=== PATIENT | male | born 1955 | race Caucasian/White ===

== ENCOUNTER 2017-05-17 09:24 | Inpatient (IN) | payer MEDICARE ==
[~2017-05-17] VITALS: Ht 172.7 cm; Wt 65.9 kg
[~2017-05-17 09:24] MED LIST: HYDR-3240 PO; MAGN400T26 PO; METF10002 PO; METF500T4 PO; ONDA4TAB7 PO; OXYC-302 PO; PANT40TA3 PO; POLY17PO5 PO; PROM25SU34 RC; TAMS-11 PO
[2017-05-17] MEDS ORDERED: DEXTROSE 50%, 50ML VIAL ONE (09:48)
[2017-05-17] MEDS ORDERED: SODIUM CHLORIDE 0.9% 1,000 ML IV ONE (10:05)
[2017-05-17] MEDS ORDERED: FAMOTIDINE 20 MG/2 ML ONE (10:14)
[2017-05-17] MEDS ORDERED: ONDANSETRON 2MG/ML, 2ML ONE (10:14)
[2017-05-17] MEDS ORDERED: FAMOTIDINE 20 MG/2 ML IVP ONE (10:30)
[2017-05-17] MEDS ORDERED: SODIUM CHLORIDE 0.9% 1,000ML IVBOLUS ONE (10:30)
[2017-05-17] MEDS ORDERED: ONDANSETRON 2MG/ML, 2ML IVPush ONE (10:30)
[2017-05-17] MEDS ORDERED: MAALOX/HYOSCYAMINE/LIDOCAINE 45 ML BOTTLE PO ONE (10:30)
[2017-05-17] MEDS ORDERED: PROMETHAZINE 25 MG/ML, 1ML ONE (10:32)
[2017-05-17] MEDS ORDERED: PROMETHAZINE 25 MG/ML, 1ML IM ONE (11:00)
[2017-05-17 11:05] LABS: ASPARTATE AMINO TRANSFERASE 27 U/L (15-37); BLOOD UREA NITROGEN 38 mg/dL (7-18)
[2017-05-17] MEDS ORDERED: MAALOX/HYOSCYAMINE/LIDOCAINE 45 ML BOTTLE ONE (11:05)
[2017-05-17] MEDS ORDERED: CIPROFLOXACIN/PMX 400MG/200ML 200 ML IV ONE (12:00)
[2017-05-17] MEDS ORDERED: METRONIDAZOLE PMX 500MG/100ML 100 ML IV ONE (12:00)
[2017-05-17 12:24] LABS: PATH.CAST-FLAG NOT PRESENT; SPERM-FLAG NOT PRESENT; SRC-FLAG NOT PRESENT; XTAL-FLAG NOT PRESENT; YLC-FLAG NOT PRESENT
[2017-05-17] MEDS ORDERED: METRONIDAZOLE PMX 500MG/100ML 100 ML ONE (12:41)
[2017-05-17] MEDS ORDERED: CIPROFLOXACIN/PMX 400MG/200ML 200 ML ONE (13:39)
[2017-05-17 15:15] VITALS: BP 117/69
[2017-05-17] MEDS ORDERED: PANTOPRAZOLE 80 MG in SODIUM CHLORIDE 0.9% 50 ML IV ONE (17:30)
[2017-05-17] MEDS ORDERED: GLUCAGON 1 MG IM PRN (17:30)
[2017-05-17] MEDS ORDERED: DEXTROSE 50%, 50ML SYRINGE IVPush PRN (17:30)
[2017-05-17] MEDS ORDERED: LABETALOL 5MG/ML, 20ML IVPush PRN (17:30)
[2017-05-17] MEDS ORDERED: DEXTROSE 4 GM TAB.CHEW PO PRN (17:30)
[2017-05-17] MEDS ORDERED: ENALAPRILAT 1.25 MG/ML, 2ML IVPush PRN (17:30)
[2017-05-17] MEDS ORDERED: INSULIN DETEMIR 100 UNITS/ML, PEN SQ-INSULIN SCH (18:00)
[2017-05-17] MEDS: morphine SULFATE 10 MG/ML, 1ML IVPush PRN ×2 (18:23→21:46)
[2017-05-17] MEDS: PANTOPRAZOLE 80 MG in SODIUM CHLORIDE 0.9% 100 ML IV SCH (18:23)
[2017-05-17] MEDS: ONDANSETRON 2MG/ML, 2ML IVPush PRN (18:23)
[2017-05-17] MEDS: CEFTRIAXONE PMX 1GM/50ML 50 ML IV SCH (18:42)
[2017-05-17] MEDS: D5%-0.45NACL+KCL 20MEQ 1,000 ML IV SCH (18:42)
[2017-05-17 20:39] VITALS: BP 108/66
[2017-05-17] MEDS: INSULIN ASPART 100 UNITS/ML, PEN SQ-INSULIN SCH (21:00)
[2017-05-17] MEDS: METRONIDAZOLE PMX 500MG/100ML 100 ML IV SCH (21:45)
[2017-05-17] MEDS: SODIUM CHLORIDE FLUSH 10ML SYR IVF SCH (21:45)
[2017-05-17] MEDS: METOCLOPRAMIDE 5 MG/ML, 2ML IVPush PRN (21:46)
[2017-05-18] MEDS: morphine SULFATE 10 MG/ML, 1ML IVPush PRN ×4 (01:16→21:46)
[2017-05-18] MEDS: ONDANSETRON 2MG/ML, 2ML IVPush PRN ×3 (01:16→21:21)
[2017-05-18 02:00] VITALS: BP 124/74
[2017-05-18] MEDS: D5%-0.45NACL+KCL 20MEQ 1,000 ML IV SCH (04:52)
[2017-05-18] MEDS: PANTOPRAZOLE 80 MG in SODIUM CHLORIDE 0.9% 100 ML IV SCH ×2 (04:52→14:05)
[2017-05-18] MEDS: METOCLOPRAMIDE 5 MG/ML, 2ML IVPush PRN ×2 (04:57→23:57)
[2017-05-18] MEDS: METRONIDAZOLE PMX 500MG/100ML 100 ML IV SCH ×3 (05:04→21:20)
[2017-05-18 06:12] LABS: ASPARTATE AMINO TRANSFERASE 22 U/L (15-37); BLOOD UREA NITROGEN 24 mg/dL (7-18)
[2017-05-18 07:26] VITALS: BP 148/83
[2017-05-18] MEDS: INSULIN ASPART 100 UNITS/ML, PEN SQ-INSULIN SCH ×4 (08:20→21:00)
[2017-05-18] MEDS: SODIUM CHLORIDE FLUSH 10ML SYR IVF SCH ×2 (09:29→21:00)
[2017-05-18] MEDS ORDERED: FENTANYL PF 100 MCG/2ML ONE (10:06)
[2017-05-18] MEDS ORDERED: PROPOFOL 10 MG/ML, 50ML ONE (10:07)
[2017-05-18] MEDS ORDERED: PROPOFOL 10 MG/ML, 20ML ONE (10:07)
[2017-05-18 12:57] VITALS: BP 112/72
[2017-05-18] MEDS: CEFTRIAXONE PMX 1GM/50ML 50 ML IV SCH (18:14)
[2017-05-18 21:32] VITALS: BP 128/74
[2017-05-19 02:22] VITALS: BP 128/71
[2017-05-19] MEDS: D5%-0.45NACL+KCL 20MEQ 1,000 ML IV SCH (02:59)
[2017-05-19] MEDS: ONDANSETRON 2MG/ML, 2ML IVPush PRN ×3 (03:03→18:21)
[2017-05-19] MEDS: METRONIDAZOLE PMX 500MG/100ML 100 ML IV SCH ×3 (05:13→21:12)
[2017-05-19 06:40] VITALS: BP 114/66
[2017-05-19] MEDS: INSULIN ASPART 100 UNITS/ML, PEN SQ-INSULIN SCH ×4 (07:00→21:13)
[2017-05-19] MEDS: METOCLOPRAMIDE 5 MG/ML, 2ML IVPush PRN ×2 (09:01→15:29)
[2017-05-19] MEDS: morphine SULFATE 10 MG/ML, 1ML IVPush PRN ×2 (09:01→12:24)
[2017-05-19] MEDS: SODIUM CHLORIDE FLUSH 10ML SYR IVF SCH ×2 (09:02→21:12)
[2017-05-19 09:29] LABS: ASPARTATE AMINO TRANSFERASE 19 U/L (15-37); BLOOD UREA NITROGEN 19 mg/dL (7-18)
[2017-05-19 12:10] VITALS: BP 122/70
[2017-05-19] MEDS ORDERED: OMNIPAQUE 350 MG/ML, 150 ML BOTTLE ONE (13:21)
[2017-05-19] MEDS: KETOROLAC 30 MG/1 ML IVPush PRN (15:29)
[2017-05-19] MEDS: CEFTRIAXONE PMX 1GM/50ML 50 ML IV SCH (17:19)
[2017-05-19] MEDS: MORPHINE SULFATE 4 MG/ML, 1ML IVPush PRN ×2 (18:22→21:12)
[2017-05-19 19:53] VITALS: BP 123/74
[2017-05-19] MEDS: PROMETHAZINE 25 MG/ML, 1ML IM PRN (21:12)
[2017-05-20] MEDS: D5%-0.45NACL+KCL 20MEQ 1,000 ML IV SCH ×2 (00:11→21:41)
[2017-05-20] MEDS: KETOROLAC 30 MG/1 ML IVPush PRN (00:12)
[2017-05-20] MEDS: METOCLOPRAMIDE 5 MG/ML, 2ML IVPush PRN ×2 (00:12→08:20)
[2017-05-20] MEDS: PROMETHAZINE 25 MG/ML, 1ML IM PRN ×2 (00:21→05:36)
[2017-05-20 00:24] VITALS: BP 156/85
[2017-05-20] MEDS: MORPHINE SULFATE 4 MG/ML, 1ML IVPush PRN ×4 (00:28→13:20)
[2017-05-20] MEDS: ONDANSETRON 2MG/ML, 2ML IVPush PRN ×2 (05:34→13:20)
[2017-05-20] MEDS: METRONIDAZOLE PMX 500MG/100ML 100 ML IV SCH ×3 (05:34→20:57)
[2017-05-20 06:09] LABS: ASPARTATE AMINO TRANSFERASE 21 U/L (15-37); BLOOD UREA NITROGEN 21 mg/dL (7-18)
[2017-05-20 06:43] VITALS: BP 132/77
[2017-05-20] MEDS: INSULIN ASPART 100 UNITS/ML, PEN SQ-INSULIN SCH ×4 (07:00→20:57)
[2017-05-20] MEDS: SODIUM CHLORIDE FLUSH 10ML SYR IVF SCH ×2 (08:20→20:58)
[2017-05-20 13:30] VITALS: BP 155/90
[2017-05-20] MEDS: CEFTRIAXONE PMX 1GM/50ML 50 ML IV SCH (17:11)
[2017-05-20 18:29] VITALS: BP 121/68
[2017-05-20] MEDS ORDERED: DIPHENHYDRAMINE 25 MG CAPSULE PO ONE (20:00)
[2017-05-20] MEDS ORDERED: TEMAZEPAM 15 MG CAPSULE PO ONE (21:15)
[2017-05-21 01:32] VITALS: BP 140/79
[2017-05-21] MEDS: ONDANSETRON 2MG/ML, 2ML IVPush PRN ×3 (05:24→20:26)
[2017-05-21] MEDS: METRONIDAZOLE PMX 500MG/100ML 100 ML IV SCH ×3 (05:25→20:24)
[2017-05-21] MEDS: METOCLOPRAMIDE 5 MG/ML, 2ML IVPush PRN (06:43)
[2017-05-21] MEDS: PROMETHAZINE 25 MG/ML, 1ML IM PRN ×3 (06:43→17:04)
[2017-05-21] MEDS: INSULIN ASPART 100 UNITS/ML, PEN SQ-INSULIN SCH ×4 (07:00→20:25)
[2017-05-21 07:46] VITALS: BP 148/77
[2017-05-21] MEDS: SODIUM CHLORIDE FLUSH 10ML SYR IVF SCH ×2 (09:13→20:24)
[2017-05-21] MEDS ORDERED: MAALOX/HYOSCYAMINE/LIDOCAINE 45 ML BOTTLE PO ONE (12:00)
[2017-05-21] MEDS: OMEPRAZOLE 20 MG CAPSULE.DR PO SCH (13:00)
[2017-05-21] MEDS: SUCRALFATE 1 GM/10 ML UDC PO SCH ×3 (13:00→20:25)
[2017-05-21 13:49] VITALS: BP 136/85
[2017-05-21] MEDS: CEFTRIAXONE PMX 1GM/50ML 50 ML IV SCH (17:23)
[2017-05-21 19:34] VITALS: BP 149/85
[2017-05-21] MEDS: D5%-0.45NACL+KCL 20MEQ 1,000 ML IV SCH (20:24)
[2017-05-22] MEDS: PROMETHAZINE 25 MG/ML, 1ML IM PRN (00:14)
[2017-05-22 03:03] VITALS: BP 142/76
[2017-05-22] MEDS: METRONIDAZOLE PMX 500MG/100ML 100 ML IV SCH ×3 (05:48→21:06)
[2017-05-22 06:48] VITALS: BP 158/87
[2017-05-22] MEDS: SUCRALFATE 1 GM/10 ML UDC PO SCH ×4 (08:45→21:06)
[2017-05-22] MEDS: SODIUM CHLORIDE FLUSH 10ML SYR IVF SCH ×2 (08:45→21:06)
[2017-05-22] MEDS: OMEPRAZOLE 20 MG CAPSULE.DR PO SCH (08:45)
[2017-05-22] MEDS: INSULIN ASPART 100 UNITS/ML, PEN SQ-INSULIN SCH ×4 (08:45→21:38)
[2017-05-22] MEDS: ONDANSETRON 2MG/ML, 2ML IVPush PRN (11:51)
[2017-05-22 13:02] VITALS: BP 125/81
[2017-05-22] MEDS ORDERED: GLUCAGON 1 MG IM PRN ×2 (14:00)
[2017-05-22] MEDS ORDERED: DEXTROSE 4 GM TAB.CHEW PO PRN ×2 (14:00)
[2017-05-22] MEDS ORDERED: ONDANSETRON 2MG/ML, 2ML IVPush PRN (14:00)
[2017-05-22] MEDS ORDERED: DEXTROSE 50%, 50ML SYRINGE IVPush PRN ×2 (14:00)
[2017-05-22] MEDS ORDERED: PROMETHAZINE 25 MG/ML, 1ML IM PRN (14:00)
[2017-05-22] MEDS ORDERED: LABETALOL 5MG/ML, 20ML IVPush PRN ×2 (14:00)
[2017-05-22] MEDS: CEFTRIAXONE PMX 1GM/50ML 50 ML IV SCH (18:04)
[2017-05-22 18:52] VITALS: BP 139/72
[2017-05-22] MEDS ORDERED: SODIUM CHLORIDE FLUSH 10ML SYR IVF SCH (21:00)
[2017-05-22] MEDS: D5%-0.45NACL+KCL 20MEQ 1,000 ML IV SCH (21:05)
[2017-05-23 02:01] VITALS: BP 144/85
[2017-05-23] MEDS: KETOROLAC 30 MG/1 ML IVPush PRN (02:44)
[2017-05-23] MEDS: METRONIDAZOLE PMX 500MG/100ML 100 ML IV SCH (04:32)
[2017-05-23] MEDS: METOCLOPRAMIDE 5 MG/ML, 2ML IVPush PRN (04:33)
[2017-05-23 07:00] VITALS: BP 137/71
[2017-05-23] MEDS: SUCRALFATE 1 GM/10 ML UDC PO SCH ×4 (07:00→21:10)
[2017-05-23] MEDS: INSULIN ASPART 100 UNITS/ML, PEN SQ-INSULIN SCH ×3 (08:04→16:00)
[2017-05-23] MEDS: SODIUM CHLORIDE FLUSH 10ML SYR IVF SCH ×2 (08:05→21:10)
[2017-05-23] MEDS: OMEPRAZOLE 20 MG CAPSULE.DR PO SCH (08:05)
[2017-05-23 08:23] LABS: BLOOD UREA NITROGEN 16 mg/dL (7-18)
[2017-05-23 08:26] LABS: ASPARTATE AMINO TRANSFERASE 22 U/L (15-37)
[2017-05-23 09:26] LABS: IS PT STATUS REG ER OR PRE ER? NO
[2017-05-23 09:46] LABS: HIV 1&2 ANTIBODY SCREEN Nonreactive (Nonreactive); HIV-1 p24 ANTIGEN Nonreactive (Nonreactive)
[2017-05-23] MEDS: NS + 20MEQ KCL 1,000 ML IV SCH (10:07)
[2017-05-23 13:58] VITALS: BP 111/72
[2017-05-23] MEDS ORDERED: DEXTROSE 50%, 50ML SYRINGE IVPush ONE (16:30)
[2017-05-23 19:07] VITALS: BP 107/68
[2017-05-23] MEDS ORDERED: GLUCAGON 1 MG IM PRN (22:00)
[2017-05-23] MEDS ORDERED: DEXTROSE 4 GM TAB.CHEW PO PRN (22:00)
[2017-05-23] MEDS ORDERED: PROMETHAZINE 25 MG/ML, 1ML IM PRN (22:00)
[2017-05-23] MEDS ORDERED: DEXTROSE 50%, 50ML SYRINGE IVPush PRN (22:00)
[2017-05-23] MEDS ORDERED: LABETALOL 5MG/ML, 20ML IVPush PRN (22:00)
[2017-05-24] MEDS: NS + 20MEQ KCL 1,000 ML IV SCH ×2 (00:38→13:56)
[2017-05-24] MEDS: INSULIN ASPART 100 UNITS/ML, PEN SQ-INSULIN SCH ×6 (04:00→20:00)
[2017-05-24] MEDS: METOCLOPRAMIDE 5 MG/ML, 2ML IVPush PRN ×2 (04:33→21:14)
[2017-05-24 05:01] VITALS: BP 149/87
[2017-05-24 05:09] LABS: BLOOD UREA NITROGEN 18 mg/dL (7-18)
[2017-05-24 05:15] LABS: ASPARTATE AMINO TRANSFERASE 24 U/L (15-37)
[2017-05-24 07:17] VITALS: BP 149/79
[2017-05-24] MEDS: SUCRALFATE 1 GM/10 ML UDC PO SCH ×4 (07:59→21:14)
[2017-05-24] MEDS: OMEPRAZOLE 20 MG CAPSULE.DR PO SCH (07:59)
[2017-05-24] MEDS: SODIUM CHLORIDE FLUSH 10ML SYR IVF SCH ×2 (08:03→21:15)
[2017-05-24 12:35] VITALS: BP 136/79
[2017-05-24 18:46] VITALS: BP 142/73
[2017-05-24] MEDS ORDERED: LURASIDONE 20 MG TABLET PO SCH (21:00)
[2017-05-24] MEDS ORDERED: KETOROLAC 30 MG/1 ML IV ONE (21:00)
[2017-05-25 00:22] VITALS: BP 158/78
[2017-05-25] MEDS: NS + 20MEQ KCL 1,000 ML IV SCH ×2 (03:56→17:10)
[2017-05-25] MEDS: INSULIN ASPART 100 UNITS/ML, PEN SQ-INSULIN SCH ×7 (03:56→23:57)
[2017-05-25 06:00] LABS: BLOOD UREA NITROGEN 14 mg/dL (7-18)
[2017-05-25 06:14] LABS: ASPARTATE AMINO TRANSFERASE 23 U/L (15-37)
[2017-05-25] MEDS: SODIUM CHLORIDE FLUSH 10ML SYR IVF SCH ×2 (08:00→23:43)
[2017-05-25] MEDS: OMEPRAZOLE 20 MG CAPSULE.DR PO SCH (08:04)
[2017-05-25] MEDS: SUCRALFATE 1 GM/10 ML UDC PO SCH ×4 (08:04→23:43)
[2017-05-25 10:16] VITALS: BP 117/77
[2017-05-25 12:52] VITALS: BP 119/86
[2017-05-25] MEDS ORDERED: LURASIDONE 20 MG TABLET PO SCH ×2 (16:30→21:00)
[2017-05-25] MEDS: HEPARIN 5,000 UNITS/ML, 1ML SQ SCH (17:00)
[2017-05-25 20:21] VITALS: BP 132/82
[2017-05-26 02:31] VITALS: BP 160/84
[2017-05-26] MEDS: INSULIN ASPART 100 UNITS/ML, PEN SQ-INSULIN SCH ×4 (04:00→16:21)
[2017-05-26] MEDS: METOCLOPRAMIDE 5 MG/ML, 2ML IVPush PRN (04:28)
[2017-05-26] MEDS: HEPARIN 5,000 UNITS/ML, 1ML SQ SCH ×2 (04:42→16:22)
[2017-05-26 05:37] LABS: ASPARTATE AMINO TRANSFERASE 14 U/L (15-37); BLOOD UREA NITROGEN 15 mg/dL (7-18)
[2017-05-26 07:16] VITALS: BP 148/82
[2017-05-26] MEDS: SUCRALFATE 1 GM/10 ML UDC PO SCH ×3 (08:24→16:21)
[2017-05-26] MEDS: OMEPRAZOLE 20 MG CAPSULE.DR PO SCH (08:24)
[2017-05-26] MEDS: SODIUM CHLORIDE FLUSH 10ML SYR IVF SCH (08:25)
[2017-05-26] MEDS: NS + 20MEQ KCL 1,000 ML IV SCH (08:25)
[2017-05-26] MEDS ORDERED: SUCR1ORA2 PO (08:40)
[2017-05-26] MEDS ORDERED: OMEP-110 PO (08:40)
[2017-05-26] MEDS ORDERED: ENAL2.5T PO (08:40)
[2017-05-26] MEDS ORDERED: ENALAPRIL 2.5MG TABLET PO SCH (09:00)
[2017-05-26 13:30] VITALS: BP 146/87
[2017-05-26] MEDS ORDERED: LURASIDONE 20 MG TABLET PO SCH (16:30)
== END 2017-05-26 19:42 | disposition home or self-care (01) | DRG 380 ==
LOC: ED 11:07 → EDIP 13:30 → 4EST 15:36 → 3NE 05-22 08:57
PROVIDERS: ADMIT Internal Medicine; ATTEND Family Medicine
PROC: 0DB68ZX Excision of Stomach, Via Natural or Artificial Opening Endoscopic, Diagnostic (ICD-10-PCS; 2017-05-18)
PROC: 0DB98ZX Excision of Duodenum, Via Natural or Artificial Opening Endoscopic, Diagnostic (ICD-10-PCS; principal; 2017-05-18 10:00)
DX: K22.11 Ulcer of esophagus with bleeding (principal); A41.9 Sepsis, unspecified organism; N17.0 Acute kidney failure with tubular necrosis; E87.0 Hyperosmolality and hypernatremia; E87.2 Acidosis; N20.2 Calculus of kidney with calculus of ureter; F31.32 Bipolar disorder, current episode depressed, moderate; K22.6 Gastro-esophageal laceration-hemorrhage syndrome; E11.65 Type 2 diabetes mellitus with hyperglycemia; E86.0 Dehydration; F12.90 Cannabis use, unspecified, uncomplicated; F41.9 Anxiety disorder, unspecified; K57.30 Diverticulosis of large intestine without perforation or abscess without bleeding; K29.80 Duodenitis without bleeding; T40.7X5A Adverse effect of cannabis (derivatives), initial encounter; Z82.0 Family history of epilepsy and other diseases of the nervous system; Z87.442 Personal history of urinary calculi; Z91.19 Patient's noncompliance with other medical treatment and regimen; Z88.6 Allergy status to analgesic agent; Z88.1 Allergy status to other antibiotic agents; Z88.8 Allergy status to other drugs, medicaments and biological substances; Z81.1 Family history of alcohol abuse and dependence; Z81.8 Family history of other mental and behavioral disorders; E11.649 Type 2 diabetes mellitus with hypoglycemia without coma
CPT/HCPCS: 36415; 71010; 74176; 74178; 80053; 81001; 82010; 82800; 82962; 83605; 83690; 83735; 83880; 84100; 84145; 84443; 84484; 85014; 85018; 85025; 85610; 86703; 86850; 86900; 86923; 87040; 87324; 87899; 88305; 89055; 93005; 93306; 96361; 96365; 96372; 96375; 99292; J0696; J0744; J1815; J1885; J2405; J2550; J2704; J3010; J3480; Q9967; C9113; G0435; J2270; J2765; J7030; S0028

== ENCOUNTER 2017-05-28 18:34 | Emergency (ER) | payer MEDICARE ==
[~2017-05-28] VITALS: Ht 167.6 cm; Wt 65.0 kg
[~2017-05-28 18:34] MED LIST changes: +ENAL2.5T PO; +OMEP-110 PO; +SUCR1ORA2 PO
[2017-05-28] MEDS ORDERED: ONDANSETRON 2MG/ML, 2ML ONE (19:22)
[2017-05-28] MEDS ORDERED: FAMOTIDINE 20 MG/2 ML ONE (19:22)
[2017-05-28] MEDS ORDERED: MAALOX/HYOSCYAMINE/LIDOCAINE 45 ML BTL ONE (19:22)
[2017-05-28] MEDS ORDERED: HALOPERIDOL 5 MG/ML IV ONE (19:30)
[2017-05-28] MEDS ORDERED: SODIUM CHLORIDE 0.9% 1,000ML IVBOLUS ONE (19:30)
[2017-05-28] MEDS ORDERED: FAMOTIDINE 20 MG/2 ML IVP ONE (19:30)
[2017-05-28] MEDS ORDERED: SODIUM CHLORIDE FLUSH 10ML SYR IVF ONE (19:30)
[2017-05-28] MEDS ORDERED: ONDANSETRON 2MG/ML, 2ML IVPush ONE (19:30)
[2017-05-28] MEDS ORDERED: MAALOX/HYOSCYAMINE/LIDOCAINE 45 ML BTL PO ONE (19:30)
[2017-05-28 19:34] VITALS: BP 124/75
[2017-05-28 19:43] LABS: PH, VENOUS 7.327 pH (7.320-7.420)
[2017-05-28 19:49] LABS: FIO2 RM AIR %
[2017-05-28 20:03] LABS: ASPARTATE AMINO TRANSFERASE 11 U/L (15-37); BLOOD UREA NITROGEN 25 mg/dL (7-18)
== END 2017-05-28 21:05 | disposition home or self-care (01) ==
LOC: ED 20:10
DX: R11.2 Nausea with vomiting, unspecified (principal)
CPT/HCPCS: 36415; 74020; 80053; 82010; 82803; 83690; 85025; 93005; 96361; 96374; 96375; 99285; J2405; J7030; S0028

== ENCOUNTER 2017-06-18 01:38 | Inpatient (IN) | payer MEDICARE, OTHER ==
[~2017-06-18] VITALS: Ht 170.2 cm; Wt 70.9 kg
[2017-06-18] MEDS ORDERED: ONDANSETRON 2MG/ML, 2ML IVPush ONE (02:30)
[2017-06-18] MEDS ORDERED: HALOPERIDOL 5 MG/ML IV ONE (02:30)
[2017-06-18] MEDS ORDERED: FAMOTIDINE 20 MG/2 ML IVP ONE (02:30)
[2017-06-18] MEDS ORDERED: SODIUM CHLORIDE 0.9% 1,000ML IVBOLUS ONE ×2 (02:30→03:30)
[2017-06-18] MEDS ORDERED: DIPHENHYDRAMINE 50 MG/ML, 1ML IVPush ONE (02:30)
[2017-06-18 02:32] LABS: HEMATOCRIT 44.5 % (39.2-51.8); HEMOGLOBIN 14.6 g/dL (13.7-18.0); WHITE BLOOD COUNT 11.9 x10^3/uL (3.4-10)
[2017-06-18] MEDS ORDERED: DIPHENHYDRAMINE 50 MG/ML, 1ML ONE (02:39)
[2017-06-18] MEDS ORDERED: HALOPERIDOL 5 MG/ML ONE (02:39)
[2017-06-18] MEDS ORDERED: FAMOTIDINE 20 MG/2 ML ONE (02:39)
[2017-06-18 02:44] LABS: ASPARTATE AMINO TRANSFERASE 24 U/L (15-37); BLOOD UREA NITROGEN 41 mg/dL (7-18)
[2017-06-18] MEDS ORDERED: LORazepam 2 MG/ML, 1ML IVPush ONE (03:30)
[2017-06-18] MEDS ORDERED: PROMETHAZINE 25 MG/ML, 1ML IM PRN (05:00)
[2017-06-18] MEDS ORDERED: hydrALAzine 20 MG/ML, 1ML IVPush PRN (05:00)
[2017-06-18] MEDS ORDERED: METOCLOPRAMIDE 5 MG/ML, 2ML IVPush PRN (05:00)
[2017-06-18] MEDS ORDERED: DEXTROSE 50%, 50ML SYRINGE IVPush PRN (05:00)
[2017-06-18] MEDS ORDERED: DEXTROSE 4 GM TAB.CHEW PO PRN (05:00)
[2017-06-18] MEDS ORDERED: BISACODYL 10 MG SUPP PR PRN (05:00)
[2017-06-18] MEDS ORDERED: GLUCAGON 1 MG IM PRN (05:00)
[2017-06-18 06:11] VITALS: BP 134/73
[2017-06-18] MEDS: INSULIN ASPART 100 UNITS/ML, PEN SQ-INSULIN SCH ×4 (08:00→23:13)
[2017-06-18 08:24] VITALS: BP 117/71
[2017-06-18] MEDS: SODIUM CHLORIDE FLUSH 10ML SYR IVF SCH ×2 (09:00→21:10)
[2017-06-18] MEDS: ENOXAPARIN 40 MG/0.4 ML SQ SCH (09:20)
[2017-06-18] MEDS: LACTATED RINGERS 1,000 ML IV SCH ×2 (10:48→17:09)
[2017-06-18] MEDS: ONDANSETRON 2MG/ML, 2ML IVPush PRN (13:48)
[2017-06-18 13:50] VITALS: BP 135/79
[2017-06-18] MEDS: morphine SULFATE 10 MG/ML, 1ML IVPush PRN (13:53)
[2017-06-18] MEDS: LORazepam 2 MG/ML, 1ML IVPush PRN (17:08)
[2017-06-18 17:12] VITALS: BP 135/75
[2017-06-18 20:37] VITALS: BP 124/74
[2017-06-19] MEDS: LACTATED RINGERS 1,000 ML IV SCH ×3 (01:50→15:08)
[2017-06-19 02:01] VITALS: BP 132/78
[2017-06-19] MEDS: morphine SULFATE 10 MG/ML, 1ML IVPush PRN ×3 (03:54→20:07)
[2017-06-19] MEDS: ONDANSETRON 2MG/ML, 2ML IVPush PRN ×3 (03:55→20:07)
[2017-06-19] MEDS: INSULIN ASPART 100 UNITS/ML, PEN SQ-INSULIN SCH ×4 (05:33→23:18)
[2017-06-19 05:39] LABS: BLOOD UREA NITROGEN 20 mg/dL (7-18)
[2017-06-19 05:49] LABS: HEMATOCRIT 36.4 % (39.2-51.8); HEMOGLOBIN 12.3 g/dL (13.7-18.0); WHITE BLOOD COUNT 6.8 x10^3/uL (3.4-10)
[2017-06-19] MEDS: SODIUM CHLORIDE FLUSH 10ML SYR IVF SCH ×2 (07:57→20:07)
[2017-06-19] MEDS: ENOXAPARIN 40 MG/0.4 ML SQ SCH (09:00)
[2017-06-19 09:16] VITALS: BP 150/90
[2017-06-19 09:33] VITALS: BP 123/81
[2017-06-19 10:56] LABS: PATH.CAST-FLAG NOT PRESENT; SPERM-FLAG NOT PRESENT; SRC-FLAG NOT PRESENT; XTAL-FLAG NOT PRESENT; YLC-FLAG NOT PRESENT
[2017-06-19 15:18] VITALS: BP 136/71
[2017-06-19] MEDS: SODIUM CHLORIDE 0.9% 1,000 ML IV SCH ×2 (16:19→23:15)
[2017-06-19 19:40] VITALS: BP 131/76
[2017-06-19] MEDS: LORazepam 2 MG/ML, 1ML IVPush PRN (23:49)
[2017-06-20 02:25] VITALS: BP 115/67
[2017-06-20] MEDS: INSULIN ASPART 100 UNITS/ML, PEN SQ-INSULIN SCH ×4 (05:33→21:22)
[2017-06-20 05:34] LABS: HEMATOCRIT 32.8 % (39.2-51.8); HEMOGLOBIN 11.2 g/dL (13.7-18.0); WHITE BLOOD COUNT 5.3 x10^3/uL (3.4-10)
[2017-06-20] MEDS: SODIUM CHLORIDE 0.9% 1,000 ML IV SCH ×2 (06:11→20:00)
[2017-06-20] MEDS: ONDANSETRON 2MG/ML, 2ML IVPush PRN (06:51)
[2017-06-20] MEDS: morphine SULFATE 10 MG/ML, 1ML IVPush PRN ×3 (07:15→20:00)
[2017-06-20 07:35] VITALS: BP 135/75
[2017-06-20] MEDS ORDERED: FENTANYL PF 250 MCG/5ML ONE (08:49)
[2017-06-20] MEDS ORDERED: MIDAZOLAM 1 MG/ML, 2ML ONE (08:49)
[2017-06-20] MEDS ORDERED: PROPOFOL 10 MG/ML, 20ML ONE (09:10)
[2017-06-20] MEDS ORDERED: SUGAMMADEX 200 MG/2 ML IVPush ONE ×2 (09:10→10:00)
[2017-06-20] MEDS ORDERED: ONDANSETRON 2MG/ML, 2ML ONE (09:10)
[2017-06-20] MEDS ORDERED: SUCCINYLCHOLINE 20 MG/ML, 10ML ONE (09:10)
[2017-06-20] MEDS ORDERED: ROCURONIUM 10 MG/ML ONE ×2 (09:10)
[2017-06-20] MEDS ORDERED: CEFAZOLIN 1,000 MG ONE (09:10)
[2017-06-20] MEDS: SODIUM CHLORIDE FLUSH 10ML SYR IVF SCH ×2 (09:14→21:00)
[2017-06-20] MEDS: ENOXAPARIN 40 MG/0.4 ML SQ SCH (09:15)
[2017-06-20] MEDS ORDERED: ACETAMINOPHEN 325 MG TABLET PO PRN (10:00)
[2017-06-20] MEDS ORDERED: hydrALAzine 20 MG/ML, 1ML IV PRN (10:00)
[2017-06-20] MEDS ORDERED: HYDROmorphone 1 MG/ML, 1ML IV PRN (10:00)
[2017-06-20] MEDS ORDERED: METOCLOPRAMIDE 5 MG/ML, 2ML IV PRN (10:00)
[2017-06-20] MEDS ORDERED: LABETALOL 5MG/ML, 20ML IV PRN (10:00)
[2017-06-20] MEDS ORDERED: OXYcodone 5 MG/5 ML ORAL.SOL UDC PO PRN (10:00)
[2017-06-20] MEDS ORDERED: ONDANSETRON 2MG/ML, 2ML IVPush PRN (10:00)
[2017-06-20] MEDS ORDERED: OXYcodone 5 MG/5 ML ORAL.SOL UDC ONE (10:45)
[2017-06-20] MEDS ORDERED: ACETAMINOPHEN 650 MG/20.3 ML UDC ONE (10:45)
[2017-06-20] MEDS ORDERED: FENTANYL PF 100 MCG/2ML ONE (11:04)
[2017-06-20] MEDS: FENTANYL PF 100 MCG/2ML IV PRN ×2 (11:05→11:12)
[2017-06-20 14:37] VITALS: BP 111/62
[2017-06-20] MEDS ORDERED: HYDROcodone/APAP 5/325 TABLET ONE ×2 (17:46)
[2017-06-20] MEDS: HYDROcodone/APAP 5/325 TABLET PO PRN ×2 (17:48→22:40)
[2017-06-20 18:52] VITALS: BP 118/72
[2017-06-20] MEDS: TAMSULOSIN 0.4 MG CAP.ER.24H PO SCH ×2 (20:01→21:19)
[2017-06-21 01:32] VITALS: BP 119/74
[2017-06-21] MEDS: HYDROcodone/APAP 5/325 TABLET PO PRN ×6 (01:46→22:58)
[2017-06-21] MEDS: SODIUM CHLORIDE 0.9% 1,000 ML IV SCH ×4 (01:47→20:38)
[2017-06-21] MEDS: TEMAZEPAM 15 MG CAPSULE PO PRN ×2 (02:02→23:38)
[2017-06-21] MEDS: INSULIN ASPART 100 UNITS/ML, PEN SQ-INSULIN SCH ×4 (05:18→20:37)
[2017-06-21 07:08] VITALS: BP 112/63
[2017-06-21] MEDS: SODIUM CHLORIDE FLUSH 10ML SYR IVF SCH ×2 (08:52→20:38)
[2017-06-21] MEDS: ENOXAPARIN 40 MG/0.4 ML SQ SCH (11:09)
[2017-06-21 13:27] VITALS: BP 106/61
[2017-06-21 20:05] VITALS: BP 116/76
[2017-06-21] MEDS: TAMSULOSIN 0.4 MG CAP.ER.24H PO SCH (20:38)
[2017-06-21] MEDS: LIDOCAINE GEL 2%, 5ML TP PRN (22:35)
[2017-06-22] MEDS: HYDROcodone/APAP 5/325 TABLET PO PRN ×5 (03:12→20:21)
[2017-06-22] MEDS: LIDOCAINE GEL 2%, 5ML TP PRN (03:13)
[2017-06-22 03:57] VITALS: BP 135/70
[2017-06-22] MEDS: SODIUM CHLORIDE 0.9% 1,000 ML IV SCH ×3 (05:20→18:40)
[2017-06-22] MEDS: INSULIN ASPART 100 UNITS/ML, PEN SQ-INSULIN SCH ×4 (06:35→22:14)
[2017-06-22 07:46] VITALS: BP 110/69
[2017-06-22] MEDS: SODIUM CHLORIDE FLUSH 10ML SYR IVF SCH ×2 (09:28→22:22)
[2017-06-22] MEDS: morphine SULFATE 10 MG/ML, 1ML IVPush PRN ×4 (11:30→22:22)
[2017-06-22] MEDS: ENOXAPARIN 40 MG/0.4 ML SQ SCH (11:57)
[2017-06-22 13:51] VITALS: BP 132/75
[2017-06-22 20:46] VITALS: BP 138/83
[2017-06-22] MEDS: TAMSULOSIN 0.4 MG CAP.ER.24H PO SCH (22:22)
[2017-06-23] MEDS: SODIUM CHLORIDE 0.9% 1,000 ML IV SCH ×2 (01:20→10:18)
[2017-06-23 02:18] VITALS: BP 124/80
[2017-06-23] MEDS: HYDROcodone/APAP 5/325 TABLET PO PRN ×2 (05:55→18:42)
[2017-06-23 06:15] LABS: HEMATOCRIT 30.8 % (39.2-51.8); HEMOGLOBIN 10.5 g/dL (13.7-18.0); WHITE BLOOD COUNT 3.7 x10^3/uL (3.4-10)
[2017-06-23 06:17] LABS: ASPARTATE AMINO TRANSFERASE 14 U/L (15-37); BLOOD UREA NITROGEN 13 mg/dL (7-18)
[2017-06-23] MEDS: INSULIN ASPART 100 UNITS/ML, PEN SQ-INSULIN SCH ×4 (07:00→22:39)
[2017-06-23 07:28] VITALS: BP 131/76
[2017-06-23] MEDS: SODIUM CHLORIDE FLUSH 10ML SYR IVF SCH ×2 (09:00→22:42)
[2017-06-23] MEDS ORDERED: OXYcodone/APAP 5/325MG TABLET ONE (10:14)
[2017-06-23] MEDS: OXYcodone/APAP 5/325MG TABLET PO PRN ×2 (10:17→14:24)
[2017-06-23] MEDS: ENOXAPARIN 40 MG/0.4 ML SQ SCH (12:22)
[2017-06-23 14:12] VITALS: BP 124/67
[2017-06-23] MEDS ORDERED: OPIUM/BELLADONNA SUPP.RECT 16.2-60 MG PR PRN (16:00)
[2017-06-23 19:47] VITALS: BP 150/82
[2017-06-23] MEDS: TAMSULOSIN 0.4 MG CAP.ER.24H PO SCH (22:39)
[2017-06-24] MEDS: HYDROcodone/APAP 5/325 TABLET PO PRN ×4 (00:42→14:09)
[2017-06-24 01:40] VITALS: BP 128/80
[2017-06-24 05:22] LABS: HEMATOCRIT 31.5 % (39.2-51.8); HEMOGLOBIN 10.7 g/dL (13.7-18.0); WHITE BLOOD COUNT 3.7 x10^3/uL (3.4-10)
[2017-06-24 05:44] LABS: BLOOD UREA NITROGEN 17 mg/dL (7-18)
[2017-06-24] MEDS: INSULIN ASPART 100 UNITS/ML, PEN SQ-INSULIN SCH ×2 (06:13→12:03)
[2017-06-24 07:40] VITALS: BP 125/70
[2017-06-24] MEDS: SODIUM CHLORIDE FLUSH 10ML SYR IVF SCH (10:21)
[2017-06-24] MEDS ORDERED: TAMS-11 PO (10:47)
[2017-06-24] MEDS ORDERED: OPIU1SUP PR (10:47)
[2017-06-24] MEDS ORDERED: LIDO5JEL4 TP (10:47)
[2017-06-24] MEDS ORDERED: OXYC-229 PO (10:47)
[2017-06-24] MEDS: ENOXAPARIN 40 MG/0.4 ML SQ SCH (12:05)
== END 2017-06-24 15:27 | disposition home or self-care (01) | DRG 668 ==
LOC: ED 03:51 → EDIP 04:32 → SUATTDRO 04:37 → 4NOR 05:58 → DCLOUNGE 06-24 15:16
PROVIDERS: ATTEND Internal Medicine
PROC: 0TC68ZZ Extirpation of Matter from Right Ureter, Via Natural or Artificial Opening Endoscopic (ICD-10-PCS; 2017-06-20)
PROC: 0T768DZ Dilation of Right Ureter with Intraluminal Device, Via Natural or Artificial Opening Endoscopic (ICD-10-PCS; 2017-06-20)
PROC: 0TC78ZZ Extirpation of Matter from Left Ureter, Via Natural or Artificial Opening Endoscopic (ICD-10-PCS; principal; 2017-06-20 14:30)
DX: N13.2 Hydronephrosis with renal and ureteral calculous obstruction (principal); K85.90 Acute pancreatitis without necrosis or infection, unspecified; N17.0 Acute kidney failure with tubular necrosis; K22.6 Gastro-esophageal laceration-hemorrhage syndrome; E11.9 Type 2 diabetes mellitus without complications; E86.0 Dehydration; F12.90 Cannabis use, unspecified, uncomplicated; F31.9 Bipolar disorder, unspecified; G43.A0 Cyclical vomiting, in migraine, not intractable; I11.9 Hypertensive heart disease without heart failure; K20.9 Esophagitis, unspecified; K29.80 Duodenitis without bleeding; N23 Unspecified renal colic; Z63.8 Other specified problems related to primary support group; Z79.84 Long term (current) use of oral hypoglycemic drugs; Z80.9 Family history of malignant neoplasm, unspecified; Z82.0 Family history of epilepsy and other diseases of the nervous system; Z87.19 Personal history of other diseases of the digestive system; Z87.442 Personal history of urinary calculi; Z88.8 Allergy status to other drugs, medicaments and biological substances
CPT/HCPCS: 36415; 74000; 74176; 76000; 76700; 80048; 80053; 80061; 81001; 82360; 82962; 83690; 83735; 84100; 85025; 88300; 96361; 96374; 96375; J0690; J1650; J1815; J2250; J2405; J2550; J2704; J3010; C1769; C2617; J0330; J1200; J1630; J2060; J2270; J7030; J7120; S0028

== ENCOUNTER 2018-05-20 18:22 | Emergency (ER) | payer MEDICARE ==
[~2018-05-20] VITALS: Ht 167.6 cm; Wt 66.4 kg
[~2018-05-20 18:22] MED LIST changes: +LIDO5JEL4 TP; -METF500T4 PO; +METF500T5 PO; +OPIU1SUP PR; +OXYC-307 PO; -SUCR1ORA2 PO; +SUCR1ORA5 PO
[2018-05-20 19:21] LABS: BASOPHILS # (AUTO) 0.02 x10^3/uL (0-0.1); BASOPHILS % (AUTO) 0 % (0-1); EOSINOPHILS # (AUTO) 0.01 x10^3/uL (0-0.4); EOSINOPHILS % (AUTO) 0 % (1-7); LYMPHOCYTES # (AUTO) 1.69 x10^3/uL (1-3.4); LYMPHOCYTES % (AUTO) 26 % (22-44); MD NO; MEAN CORPUSCULAR HEMOGLOBIN 32.1 pg (27.5-34.5); MEAN CORPUSCULAR HGB CONC 34.2 g/dL (33.2-36.2); MEAN CORPUSCULAR VOLUME 93.9 fL (81-97); MEAN PLATELET VOLUME 8.1 fL (7.4-10.4); MONOCYTES # (AUTO) 0.51 x10^3/uL (0.2-0.8); MONOCYTES % (AUTO) 8 % (2-9); NEUTROPHILS # (AUTO) 4.27 x10^3/uL (1.8-6.8); NEUTROPHILS % (AUTO) 66 % (42-75); PLATELET COUNT 145 x10^3/uL (130-400); RED BLOOD COUNT 4.51 x10^6/uL (4.38-5.82); RED CELL DISTRIBUTION WIDTH 13.1 % (9.4-14.8)
[2018-05-20 19:26] LABS: ALBUMIN 3.8 g/dL (3.4-5.0); ANION GAP 8 mmol/L (5-15); CHLORIDE 106 mmol/L (98-107); CREATININE 1.22 mg/dL (0.7-1.3)
[2018-05-20 19:40] LABS: TROPONIN I < 0.015 ng/mL (0.000-0.045)
[2018-05-20 21:13] VITALS: BP 140/89
== END 2018-05-20 21:14 | disposition home or self-care (01) ==
LOC: ED 20:21
DX: R07.9 Chest pain, unspecified (principal); I25.2 Old myocardial infarction; E11.9 Type 2 diabetes mellitus without complications; F31.9 Bipolar disorder, unspecified
CPT/HCPCS: 36415; 71045; 80048; 82040; 82962; 84484; 85025; 93005; 99285

== ENCOUNTER 2018-05-21 10:54 | Emergency (ER) | payer MEDICARE ==
[~2018-05-21] VITALS: Ht 167.6 cm; Wt 66.0 kg
[2018-05-21 11:58] LABS: BASOPHILS # (AUTO) 0.02 x10^3/uL (0-0.1); BASOPHILS % (AUTO) 0 % (0-1); EOSINOPHILS % (AUTO) 0 % (1-7); LYMPHOCYTES # (AUTO) 1.77 x10^3/uL (1-3.4); LYMPHOCYTES % (AUTO) 26 % (22-44); MD NO; MEAN CORPUSCULAR HEMOGLOBIN 32.3 pg (27.5-34.5); MEAN CORPUSCULAR HGB CONC 34.2 g/dL (33.2-36.2); MEAN CORPUSCULAR VOLUME 94.3 fL (81-97); MEAN PLATELET VOLUME 7.8 fL (7.4-10.4); MONOCYTES # (AUTO) 0.51 x10^3/uL (0.2-0.8); MONOCYTES % (AUTO) 8 % (2-9); NEUTROPHILS # (AUTO) 4.57 x10^3/uL (1.8-6.8); NEUTROPHILS % (AUTO) 67 % (42-75); PLATELET COUNT 150 x10^3/uL (130-400); RED BLOOD COUNT 4.71 x10^6/uL (4.38-5.82); RED CELL DISTRIBUTION WIDTH 12.9 % (9.4-14.8)
[2018-05-21 12:11] LABS: ALBUMIN 4.1 g/dL (3.4-5.0); ANION GAP 8 mmol/L (5-15); CALCIUM 9.4 mg/dL (8.5-10.1); CHLORIDE 106 mmol/L (98-107)
[2018-05-21 12:17] LABS: CREATININE 1.29 mg/dL (0.7-1.3); TROPONIN I < 0.015 ng/mL (0.000-0.045)
[2018-05-21 13:09] VITALS: BP 124/81
== END 2018-05-21 13:17 | disposition home or self-care (01) ==
LOC: ED 13:01
DX: R41.82 Altered mental status, unspecified (principal); E11.40 Type 2 diabetes mellitus with diabetic neuropathy, unspecified
CPT/HCPCS: 36415; 80048; 82040; 82962; 84484; 85025; 93005; 99285

== ENCOUNTER 2018-12-12 10:22 | Inpatient (IN) | payer MEDICARE ==
[~2018-12-12] VITALS: Ht 170.2 cm; Wt 64.1 kg
[~2018-12-12 10:22] MED LIST changes: +AZIT500T PO; +GLIM4TAB PO; +MAGN400T36 PO; +METF500T17 PO; -METF500T5 PO; +ONDA4TAB13 PO; +SIMV40TA PO
--- NOTE | 2018-12-12 10:53 | NUR ---
pt ryley rowe from [facility]. pt with n/v since last night. pt uncooperative and not answering questions appropriately. pt a&ox4. pt placed on bp and cont. pulse oximeter. assessment completed. iv started in route. pt given phenergan 12.5mg im for nausea.
[2018-12-12] MEDS ORDERED: ONDANSETRON 2MG/ML, 2ML IVPush ONE ×2 (11:00→12:00)
[2018-12-12] MEDS ORDERED: SODIUM CHLORIDE FLUSH 10ML SYR IVF ONE (11:00)
[2018-12-12] MEDS ORDERED: PANTOPRAZOLE 40 MG IV IVPush ONE (11:00)
[2018-12-12] MEDS ORDERED: PANTOPRAZOLE 40 MG IV ONE (11:13)
[2018-12-12 11:30] LABS: BASOPHILS # (AUTO) 0.02 x10^3/uL (0-0.1); BASOPHILS % (AUTO) 0 % (0-1); EOSINOPHILS % (AUTO) 0 % (1-7); LYMPHOCYTES # (AUTO) 0.72 x10^3/uL (1-3.4); LYMPHOCYTES % (AUTO) 6 % (22-44); MD NO; MEAN CORPUSCULAR HEMOGLOBIN 32.3 pg (27.5-34.5); MEAN CORPUSCULAR HGB CONC 34.4 g/dL (33.2-36.2); MEAN CORPUSCULAR VOLUME 93.9 fL (81-97); MEAN PLATELET VOLUME 8.6 fL (7.4-10.4); MONOCYTES # (AUTO) 0.58 x10^3/uL (0.2-0.8); MONOCYTES % (AUTO) 5 % (2-9); NEUTROPHILS # (AUTO) 11.34 x10^3/uL (1.8-6.8); NEUTROPHILS % (AUTO) 90 % (42-75); PLATELET COUNT 131 x10^3/uL (130-400); RED BLOOD COUNT 4.74 x10^6/uL (4.38-5.82); RED CELL DISTRIBUTION WIDTH 13.2 % (9.4-14.8)
[2018-12-12] MEDS ORDERED: SODIUM CHLORIDE 0.9% 1,000ML IVBOLUS ONE (11:30)
--- NOTE | 2018-12-12 11:30 | NUR ---
PT DIAPHORETIC AND SHAKING. RECHECKED TEMP 98.3. AWARE
[2018-12-12 11:42] LABS: ALANINE AMINOTRANSFERASE 52 U/L (12-78); ALBUMIN 4.4 g/dL (3.4-5.0); ANION GAP 11 mmol/L (5-15); CALCIUM 9.8 mg/dL (8.5-10.1); CHLORIDE 114 mmol/L (98-107); CREATININE 1.52 mg/dL (0.7-1.3); PROTHROMBIN TIME 10.6 Seconds (9.6-11.5)
[2018-12-12 11:44] LABS: ALKALINE PHOSPHATASE 45 U/L (45-117); BILIRUBIN,TOTAL 0.7 mg/dL (0.2-1.0); TOTAL PROTEIN 7.8 g/dL (6.4-8.2)
[2018-12-12] MEDS ORDERED: ONDANSETRON 2MG/ML, 2ML ONE ×2 (11:57→16:37)
--- NOTE | 2018-12-12 12:05 | NUR ---
TASK RN: PT VOMITING. ERP AWARE. ORDERS RECEIVED. PT MEDICATED PER EMAR. PT COOL/PALE/DIAPHORETIC. ERP AWARE. ADDITIONAL BLANKETS PROVIDED. IVF CONTINUES TO INFUSE. PT MOSTLY DROWSY, EASILY ARROUSABLE TO VOICE AND FOLLOWS COMMANDS. AIRWAY PATENT AND SPEECH CLEAR. Addendum: 12/12/18 at 1207 by LWEGENER ECG MONITORING IN PLACE. NSR ON MONITOR.
--- NOTE | 2018-12-12 13:00 | NUR ---
pt resting in bed.
[2018-12-12] MEDS ORDERED: SODIUM CHLORIDE 0.9% 1,000 ML IV ONE (13:49)
[2018-12-12] MEDS ORDERED: SODIUM CHLORIDE FLUSH 10ML SYR IVF PRN (14:00)
--- NOTE | 2018-12-12 14:30 | NUR ---
pt shaking and vomitting. pt very quiet. iv fluids infusing. pt cleaned up.
[2018-12-12] MEDS ORDERED: ONDANSETRON 2MG/ML, 2ML IVPush PRN ×2 (15:30→19:00)
[2018-12-12] MEDS: LACTATED RINGERS 1,000 ML IV SCH ×3 (15:30→21:32)
[2018-12-12] MEDS ORDERED: hydrALAzine 20 MG/ML, 1ML IVPush PRN (15:30)
[2018-12-12] MEDS ORDERED: morphine SULFATE 10 MG/ML, 1ML IVPush PRN (15:30)
--- NOTE | 2018-12-12 16:00 | NUR ---
pt vomitted bright red blood small amount. aware. pt with diarrhea. pt changed and cleaned up.
--- NOTE | 2018-12-12 17:45 | NUR ---
pt resting in bed.
--- NOTE | 2018-12-12 18:17 | NUR ---
pt resting in bed awaiting for bed upstairs.
[2018-12-12 18:51] LABS: AMPHETAMINE SCREEN, URINE Negative (Negative); BARBITURATE SCREEN, URINE Negative (Negative); BENZODIAZEPINE SCREEN, URINE Negative (Negative); CANNABINOID SCREEN, URINE Positive (Negative); COCAINE SCREEN, URINE Negative (Negative); METHADONE SCREEN, URINE Negative (Negative); OPIATE SCREEN, URINE Negative (Negative)
--- NOTE | 2018-12-12 19:16 | NUR ---
KELSEY IS GIVING REPORT TO [facility] FSBS 201
--- NOTE | 2018-12-12 19:16 | NUR ---
blood glucose 201. insulin held due to npo status Addendum: 12/12/18 at 1920 by ANTHONY wrong nurse
[2018-12-12] MEDS: INSULIN LISPRO 100 UNITS/ML, PEN SQ-INSULIN SCH ×2 (19:17→23:07)
--- NOTE | 2018-12-12 19:20 | NUR ---
blood glucose 201. insulin held due to pt npo status and vomitting
[2018-12-12] MEDS: PANTOPRAZOLE 40 MG IV IVPush SCH (20:21)
[2018-12-12 20:30] VITALS: BP 101/61
[2018-12-13 02:30] VITALS: BP 127/71
[2018-12-13] MEDS: LACTATED RINGERS 1,000 ML IV SCH (03:35)
[2018-12-13 06:01] LABS: CALCIUM 8.5 mg/dL (8.5-10.1); CHLORIDE 117 mmol/L (98-107)
[2018-12-13 06:06] LABS: ALANINE AMINOTRANSFERASE 34 U/L (12-78); ALBUMIN 3.4 g/dL (3.4-5.0); ALKALINE PHOSPHATASE 35 U/L (45-117); ANION GAP 5 mmol/L (5-15); BILIRUBIN,TOTAL 0.5 mg/dL (0.2-1.0); CREATININE 1.27 mg/dL (0.7-1.3)
[2018-12-13 06:10] LABS: BASOPHILS # (AUTO) 0.01 x10^3/uL (0-0.1); BASOPHILS % (AUTO) 0 % (0-1); EOSINOPHILS % (AUTO) 0 % (1-7); LYMPHOCYTES # (AUTO) 1.43 x10^3/uL (1-3.4); LYMPHOCYTES % (AUTO) 19 % (22-44); MD NO; MEAN CORPUSCULAR HEMOGLOBIN 32.3 pg (27.5-34.5); MEAN CORPUSCULAR VOLUME 94.8 fL (81-97); MEAN PLATELET VOLUME 8.5 fL (7.4-10.4); MONOCYTES # (AUTO) 0.65 x10^3/uL (0.2-0.8); MONOCYTES % (AUTO) 9 % (2-9); NEUTROPHILS % (AUTO) 72 % (42-75); PLATELET COUNT 118 x10^3/uL (130-400); RED BLOOD COUNT 3.84 x10^6/uL (4.38-5.82); RED CELL DISTRIBUTION WIDTH 13.7 % (9.4-14.8)
[2018-12-13 07:19] VITALS: BP 118/69
[2018-12-13] MEDS: PANTOPRAZOLE 40 MG IV IVPush SCH (08:09)
[2018-12-13] MEDS: INSULIN LISPRO 100 UNITS/ML, PEN SQ-INSULIN SCH ×3 (08:11→16:00)
[2018-12-13] MEDS ORDERED: DEXTROSE 5% 1,000 ML IV SCH (09:30)
[2018-12-13] MEDS ORDERED: POTASSIUM CHLORIDE 10 MEQ in SODIUM CHLORIDE 0.45% 1,000 ML IV SCH (09:30)
[2018-12-13] MEDS ORDERED: OMEPRAZOLE 20 MG CAPSULE.DR PO SCH (10:00)
[2018-12-13] MEDS ORDERED: MAALOX/HYOSCYAMINE/LIDOCAINE 45 ML BTL PO PRN (10:00)
[2018-12-13] MEDS ORDERED: Maalox/Hyoscyamine/Lidocaine PO (11:32)
[2018-12-13] MEDS ORDERED: SUCR1TAB PO (11:32)
[2018-12-13] MEDS ORDERED: OMEP-110 PO (11:32)
[2018-12-13 13:16] VITALS: BP 120/70
== END 2018-12-13 18:00 | disposition home or self-care (01) | DRG 368 ==
LOC: ED 13:48 → EDIP 13:49 → ED 14:00 → 4NOR 19:33
PROVIDERS: ADMIT Internal Medicine; ATTEND Internal Medicine
DX: K22.6 Gastro-esophageal laceration-hemorrhage syndrome (principal); N17.0 Acute kidney failure with tubular necrosis; D72.829 Elevated white blood cell count, unspecified; E11.65 Type 2 diabetes mellitus with hyperglycemia; F12.90 Cannabis use, unspecified, uncomplicated; F31.9 Bipolar disorder, unspecified; I10 Essential (primary) hypertension; N20.0 Calculus of kidney; Z80.42 Family history of malignant neoplasm of prostate; Z87.19 Personal history of other diseases of the digestive system; Z87.442 Personal history of urinary calculi
CPT/HCPCS: 36415; 74021; 80053; 80307; 82962; 83690; 83735; 84100; 85025; 85610; 85730; G0378; J2405; J7070; C9113; J1815; J7030; J7120

== ENCOUNTER 2018-12-15 07:34 | Inpatient (IN) | payer MEDICARE ==
[~2018-12-15] VITALS: Ht 170.2 cm; Wt 55.2 kg
[~2018-12-15 07:34] MED LIST changes: +Maalox/Hyoscyamine/Lidocaine PO; +SUCR1TAB PO
[2018-12-15] MEDS ORDERED: SODIUM CHLORIDE 0.9% 1,000 ML IV ONE ×2 (07:54→09:57)
[2018-12-15] MEDS ORDERED: ONDANSETRON 2MG/ML, 2ML IVPush ONE (08:00)
[2018-12-15] MEDS ORDERED: SODIUM CHLORIDE FLUSH 10ML SYR IVF ONE (08:00)
[2018-12-15] MEDS ORDERED: SODIUM CHLORIDE 0.9% 1,000ML IVBOLUS ONE (08:00)
--- NOTE | 2018-12-15 08:00 | NUR ---
PT TO XRAY VIA ASHLEY IN NAD
[2018-12-15] MEDS ORDERED: ONDANSETRON 2MG/ML, 2ML ONE (08:05)
--- NOTE | 2018-12-15 08:20 | NUR ---
pt returned from [facility] in [place], RN to assess & administer medication per MAR.
--- NOTE | 2018-12-15 08:56 | NUR ---
IV INITIATED PER MD ORDER, BLOOD SENT TO LAB, [facility]
--- NOTE | 2018-12-15 09:17 | NUR ---
PT WAS YELLING AT [facility]SHLEY FROM REGISTRATION WHILE SHE WAS REQUESTING SIGNATURES FROM HIM FOR INSURANCE. RN REQUESTED PT TO BE RESPECTFUL TO STAFF. PT IN BED, NAD, GIVEN WARM BLANKETS, AWAITING LABWORK & RN HAS REQUESTED PT TO PROVIDE UA. ESHA
[2018-12-15 09:27] LABS: MEAN CORPUSCULAR HEMOGLOBIN 31.3 pg (27.5-34.5); MEAN CORPUSCULAR HGB CONC 33.4 g/dL (33.2-36.2); MEAN CORPUSCULAR VOLUME 93.8 fL (81-97); MEAN PLATELET VOLUME 9.1 fL (7.4-10.4); PLATELET COUNT 138 x10^3/uL (130-400); RED BLOOD COUNT 4.87 x10^6/uL (4.38-5.82); RED CELL DISTRIBUTION WIDTH 13.1 % (9.4-14.8)
[2018-12-15] MEDS ORDERED: HALOPERIDOL 5 MG/ML IV ONE (09:30)
[2018-12-15 09:32] LABS: ALBUMIN 4.4 g/dL (3.4-5.0); ANION GAP 10 mmol/L (5-15); CALCIUM 9.2 mg/dL (8.5-10.1); CHLORIDE 105 mmol/L (98-107)
[2018-12-15 09:35] LABS: ALANINE AMINOTRANSFERASE 78 U/L (12-78); ALKALINE PHOSPHATASE 43 U/L (45-117); BILIRUBIN,TOTAL 1.2 mg/dL (0.2-1.0); CREATININE 1.25 mg/dL (0.7-1.3); TOTAL PROTEIN 7.4 g/dL (6.4-8.2)
[2018-12-15 09:41] LABS: ACETONE, SERUM Moderate(40mg/dL) mg/dL (Negative)
[2018-12-15] MEDS ORDERED: HALOPERIDOL 5 MG/ML ONE (09:59)
[2018-12-15 10:00] LABS: BASOPHILS # (AUTO) 0.03 x10^3/uL (0-0.1); BASOPHILS % (AUTO) 1 % (0-1); EOSINOPHILS % (AUTO) 0 % (1-7); LYMPHOCYTES % (AUTO) 22 % (22-44); MD SCAN; MONOCYTES # (AUTO) 0.34 x10^3/uL (0.2-0.8); MONOCYTES % (AUTO) 6 % (2-9); NEUTROPHILS # (AUTO) 4.24 x10^3/uL (1.8-6.8); NEUTROPHILS % (AUTO) 72 % (42-75)
[2018-12-15] MEDS ORDERED: SODIUM CHLORIDE FLUSH 10ML SYR IVF PRN (10:00)
--- NOTE | 2018-12-15 10:10 | NUR ---
UA SENT TO LAB, PT IN BED, NAD, NO NEEDS AT THIS TIME, AWAITING FLOOR RN TO CALL FOR REPORT
[2018-12-15 10:23] LABS: MICROSCOPIC NOT IND
[2018-12-15 10:29] LABS: CULTURE INDICATED? NO
[2018-12-15 10:47] VITALS: BP 154/75
[2018-12-15] MEDS ORDERED: hydrALAzine 20 MG/ML, 1ML IVPush PRN (12:00)
[2018-12-15] MEDS ORDERED: MORPHINE SULFATE 4 MG/ML, 1ML IVPush PRN (12:00)
[2018-12-15] MEDS ORDERED: ONDANSETRON 2MG/ML, 2ML IVPush PRN (12:00)
[2018-12-15] MEDS: SODIUM CHLORIDE 0.9% 1,000 ML IV SCH ×2 (12:54→18:59)
[2018-12-15] MEDS: PANTOPRAZOLE 40 MG IV IVPush SCH (12:54)
[2018-12-15 13:40] LABS: AMPHETAMINE SCREEN, URINE Negative (Negative); BARBITURATE SCREEN, URINE Negative (Negative); BENZODIAZEPINE SCREEN, URINE Negative (Negative); CANNABINOID SCREEN, URINE Positive (Negative); COCAINE SCREEN, URINE Negative (Negative); METHADONE SCREEN, URINE Negative (Negative); OPIATE SCREEN, URINE Negative (Negative)
[2018-12-15 13:49] VITALS: BP 118/70
[2018-12-15 19:10] VITALS: BP 151/87
[2018-12-16 00:16] VITALS: BP 129/65
[2018-12-16] MEDS: PANTOPRAZOLE 40 MG IV IVPush SCH (00:36)
[2018-12-16] MEDS: SODIUM CHLORIDE 0.9% 1,000 ML IV SCH ×2 (04:22→12:00)
[2018-12-16 05:11] LABS: ANION GAP 5 mmol/L (5-15); BASOPHILS # (AUTO) 0.02 x10^3/uL (0-0.1); BASOPHILS % (AUTO) 0 % (0-1); CALCIUM 7.5 mg/dL (8.5-10.1); CHLORIDE 113 mmol/L (98-107); EOSINOPHILS # (AUTO) 0.04 x10^3/uL (0-0.4); EOSINOPHILS % (AUTO) 1 % (1-7); LYMPHOCYTES # (AUTO) 1.93 x10^3/uL (1-3.4); LYMPHOCYTES % (AUTO) 38 % (22-44); MD NO; MEAN CORPUSCULAR HEMOGLOBIN 31.1 pg (27.5-34.5); MEAN CORPUSCULAR HGB CONC 32.9 g/dL (33.2-36.2); MEAN CORPUSCULAR VOLUME 94.5 fL (81-97); MEAN PLATELET VOLUME 8.4 fL (7.4-10.4); MONOCYTES % (AUTO) 8 % (2-9); NEUTROPHILS # (AUTO) 2.73 x10^3/uL (1.8-6.8); NEUTROPHILS % (AUTO) 53 % (42-75); PLATELET COUNT 116 x10^3/uL (130-400); RED BLOOD COUNT 4.17 x10^6/uL (4.38-5.82); RED CELL DISTRIBUTION WIDTH 13.1 % (9.4-14.8)
[2018-12-16 08:15] VITALS: BP 138/73
[2018-12-16] MEDS ORDERED: PANTOPROZOLE 40MG TABLET PO SCH (08:30)
[2018-12-16] MEDS ORDERED: MAALOX/HYOSCYAMINE/LIDOCAINE 45 ML BTL PO PRN (08:30)
[2018-12-16] MEDS ORDERED: POTASSIUM PHOSPHATE 44 MEQ in SODIUM CHLORIDE 0.9% 500 ML IV ONE (08:30)
[2018-12-16] MEDS: SUCRALFATE 1 GM TABLET PO SCH ×2 (09:10→15:56)
[2018-12-16] MEDS ORDERED: ACETAMINOPHEN 325 MG TABLET PO PRN (12:30)
[2018-12-16 14:20] VITALS: BP 120/71
[2018-12-16] MEDS ORDERED: Maalox/Hyoscyamine/Lidocaine PO (14:24)
[2018-12-16] MEDS ORDERED: PANT40TA5 PO (14:24)
[2018-12-16] MEDS ORDERED: ONDA4TAB13 SL (14:24)
[2018-12-16] MEDS ORDERED: SUCR1TAB33 PO (14:24)
== END 2018-12-16 16:45 | disposition home or self-care (01) | DRG 391 ==
LOC: ED 08:58 → 3NW 09:57 → DCLOUNGE 12-16 16:30
PROVIDERS: ADMIT Internal Medicine; ATTEND Internal Medicine
DX: R10.13 Epigastric pain (principal); N17.0 Acute kidney failure with tubular necrosis; R11.2 Nausea with vomiting, unspecified; E86.9 Volume depletion, unspecified; N20.0 Calculus of kidney; F31.9 Bipolar disorder, unspecified; E11.42 Type 2 diabetes mellitus with diabetic polyneuropathy; I10 Essential (primary) hypertension; Z80.42 Family history of malignant neoplasm of prostate; Z87.19 Personal history of other diseases of the digestive system; Z87.442 Personal history of urinary calculi; Z88.6 Allergy status to analgesic agent; Z88.8 Allergy status to other drugs, medicaments and biological substances; Z88.1 Allergy status to other antibiotic agents; F12.90 Cannabis use, unspecified, uncomplicated
CPT/HCPCS: 36415; 74021; 74176; 80048; 80053; 80307; 81003; 82010; 82800; 82962; 83690; 83735; 84100; 85025; 90656; 96361; 96374; 99285; G0378; J2405; C9113; J7030; J7040

== ENCOUNTER 2018-12-17 07:39 | Emergency (ER) | payer MEDICARE ==
[~2018-12-17] VITALS: Ht 170.2 cm; Wt 64.3 kg
[~2018-12-17 07:39] MED LIST changes: +ONDA4TAB13 SL; +PANT40TA5 PO; +SUCR1TAB33 PO
[2018-12-17] MEDS ORDERED: ONDANSETRON 2MG/ML, 2ML IVPush ONE (08:00)
[2018-12-17] MEDS ORDERED: SODIUM CHLORIDE FLUSH 10ML SYR IVF ONE ×2 (08:00→11:00)
[2018-12-17] MEDS ORDERED: FAMOTIDINE 20 MG/2 ML IVP ONE ×2 (08:00→11:00)
[2018-12-17 08:28] LABS: ALANINE AMINOTRANSFERASE 79 U/L (12-78); ALBUMIN 4.2 g/dL (3.4-5.0); ANION GAP 10 mmol/L (5-15); CALCIUM 9.2 mg/dL (8.5-10.1); CHLORIDE 107 mmol/L (98-107); CREATININE 1.34 mg/dL (0.7-1.3)
[2018-12-17 08:30] LABS: ALKALINE PHOSPHATASE 46 U/L (45-117); BILIRUBIN,TOTAL 1.3 mg/dL (0.2-1.0); TOTAL PROTEIN 7.2 g/dL (6.4-8.2)
[2018-12-17 08:39] LABS: BASOPHILS # (AUTO) 0.03 x10^3/uL (0-0.1); BASOPHILS % (AUTO) 1 % (0-1); EOSINOPHILS # (AUTO) 0.05 x10^3/uL (0-0.4); EOSINOPHILS % (AUTO) 1 % (1-7); LYMPHOCYTES # (AUTO) 0.87 x10^3/uL (1-3.4); LYMPHOCYTES % (AUTO) 14 % (22-44); MD NO; MEAN CORPUSCULAR HGB CONC 33.3 g/dL (33.2-36.2); MEAN CORPUSCULAR VOLUME 93.1 fL (81-97); MEAN PLATELET VOLUME 8.4 fL (7.4-10.4); MONOCYTES # (AUTO) 0.35 x10^3/uL (0.2-0.8); MONOCYTES % (AUTO) 6 % (2-9); NEUTROPHILS # (AUTO) 4.86 x10^3/uL (1.8-6.8); NEUTROPHILS % (AUTO) 79 % (42-75); PLATELET COUNT 138 x10^3/uL (130-400); RED BLOOD COUNT 4.98 x10^6/uL (4.38-5.82); RED CELL DISTRIBUTION WIDTH 12.7 % (9.4-14.8)
--- NOTE | 2018-12-17 09:32 | NUR ---
FOREST WORKER: PT WAS VERBALLY AGGRESSIVE TOWARDS MARIBETH OF REGISTRATION, I SPOKE WITH PT ABOUT APPROPRIATE BEHAVIOR TOWARDS STAFF AND UPDATED PT THAT HE WOULD BE TAKEN TO A ROOM SOON ONE WAS AVAILABLE AND ON HIS PIT LAB RESULTS. PT STATES "I JUST NEED SOMEONE TO TAKE CARE OF ME" PT IN NAD.
--- NOTE | 2018-12-17 10:24 | NUR ---
SOIL FIELD TECHNICIAN: PT AMBULATORY TO ED ROOM 22 FROM [facility] IN [facility] AT THIS TIME
[2018-12-17] MEDS ORDERED: METOCLOPRAMIDE 5 MG/ML, 2ML IVPush ONE (11:00)
[2018-12-17] MEDS ORDERED: ZIPRASIDONE 20 MG INJ IM ONE ×2 (11:00→11:18)
[2018-12-17] MEDS ORDERED: SODIUM CHLORIDE 0.9% 1,000ML IVBOLUS ONE (11:00)
[2018-12-17] MEDS ORDERED: FAMOTIDINE 20 MG/2 ML ONE (11:18)
[2018-12-17] MEDS ORDERED: METOCLOPRAMIDE 5 MG/ML, 2ML ONE (11:18)
--- NOTE | 2018-12-17 11:35 | NUR ---
assumed care if pt. report from break NEO Oscar. pt here for c/o abd pain andhsa had mulitple recent visits and recent hospitalization for same. pt stated feeing weak but ambulated to room without difficulty or assist. stated to previous staff that he "needed someone to take care of him". pt has bene medicated per order. resting in position of comfort. no family at bedside
--- NOTE | 2018-12-17 12:05 | NUR ---
PO challenge has been initiated. pt sleeping upon entering room. no vomiting. no apparent distress. no family at bedside
--- NOTE | 2018-12-17 12:30 | NUR ---
md has been to bedside for recheck. pt ambulatedto BR without difficulty. no vomiting noted
--- NOTE | 2018-12-17 12:35 | NUR ---
ppt has been taking sips of PO water. no vomiting
[2018-12-17 13:26] VITALS: BP 116/69
== END 2018-12-17 13:30 | disposition home or self-care (01) ==
LOC: ED 12:35
DX: G43.A1 Cyclical vomiting, in migraine, intractable (principal); E11.9 Type 2 diabetes mellitus without complications; F31.9 Bipolar disorder, unspecified
CPT/HCPCS: 36415; 80053; 83690; 85025; 96361; 96372; 96374; 96375; 99283; J2765; J3486; J3490; J7030

== ENCOUNTER 2019-02-28 01:24 | Inpatient (IN) | payer MEDICARE ==
[~2019-02-28] VITALS: Ht 170.2 cm; Wt 67.1 kg
--- NOTE | 2019-02-28 01:32 | NUR ---
Pt BIB EMS from home for nausea and vomiting. Pt states he ate an egg sandwich for dinner and developed sx shortly after. Multiple episodes of nausea. Dark red, bloody. BG 157.
[2019-02-28] MEDS ORDERED: LOVA40TA2 PO (01:34)
[2019-02-28] MEDS ORDERED: SODIUM CHLORIDE 0.9% 1,000ML IVBOLUS ONE ×2 (02:00→03:30)
[2019-02-28] MEDS ORDERED: SODIUM CHLORIDE FLUSH 10ML SYR IVF ONE (02:00)
[2019-02-28] MEDS ORDERED: METOCLOPRAMIDE 5 MG/ML, 2ML IVPush ONE (02:00)
[2019-02-28] MEDS ORDERED: METOCLOPRAMIDE 5 MG/ML, 2ML ONE (02:05)
[2019-02-28 02:16] LABS: BASOPHILS # (AUTO) 0.02 x10^3/uL (0-0.1); BASOPHILS % (AUTO) 0 % (0-1); EOSINOPHILS # (AUTO) 0.14 x10^3/uL (0-0.4); EOSINOPHILS % (AUTO) 1 % (1-7); LYMPHOCYTES # (AUTO) 1.29 x10^3/uL (1-3.4); LYMPHOCYTES % (AUTO) 13 % (22-44); MD NO; MEAN CORPUSCULAR HEMOGLOBIN 31.5 pg (27.5-34.5); MEAN CORPUSCULAR HGB CONC 34.3 g/dL (33.2-36.2); MEAN PLATELET VOLUME 7.6 fL (7.4-10.4); MONOCYTES # (AUTO) 0.49 x10^3/uL (0.2-0.8); MONOCYTES % (AUTO) 5 % (2-9); NEUTROPHILS # (AUTO) 7.78 x10^3/uL (1.8-6.8); NEUTROPHILS % (AUTO) 80 % (42-75); PLATELET COUNT 200 x10^3/uL (130-400); RED BLOOD COUNT 4.03 x10^6/uL (4.38-5.82); RED CELL DISTRIBUTION WIDTH 13.4 % (9.4-14.8)
--- NOTE | 2019-02-28 02:18 | NUR ---
MEDS AND IVF GIVEN PER MD ORDERS WARM BLANKETS APPLIED
[2019-02-28 02:24] LABS: ALANINE AMINOTRANSFERASE 38 U/L (12-78); ALBUMIN 3.9 g/dL (3.4-5.0); ANION GAP 9 mmol/L (5-15); CALCIUM 8.8 mg/dL (8.5-10.1); CHLORIDE 101 mmol/L (98-107)
[2019-02-28 02:27] LABS: ALKALINE PHOSPHATASE 38 U/L (45-117); BILIRUBIN,TOTAL 0.8 mg/dL (0.2-1.0); TOTAL PROTEIN 6.5 g/dL (6.4-8.2)
[2019-02-28 02:48] LABS: ACETONE, SERUM Moderate(40mg/dL) mg/dL (Negative)
[2019-02-28] MEDS ORDERED: OMNIPAQUE 350 MG/ML, 100ML BOTTLE ONE (03:02)
[2019-02-28 04:04] LABS: MICROSCOPIC AUTO
[2019-02-28 04:08] LABS: CULTURE INDICATED? NO
[2019-02-28] MEDS ORDERED: ONDANSETRON 2MG/ML, 2ML ONE (06:23)
[2019-02-28] MEDS ORDERED: ONDANSETRON 2MG/ML, 2ML IVPush ONE (06:30)
[2019-02-28] MEDS ORDERED: hydrALAzine 20 MG/ML, 1ML IVPush PRN (07:00)
[2019-02-28] MEDS ORDERED: ONDANSETRON 2MG/ML, 2ML IVPush PRN (07:00)
[2019-02-28] MEDS ORDERED: DOCUSATE 100 MG CAPSULE PO PRN (07:00)
[2019-02-28] MEDS ORDERED: morphine SULFATE 10 MG/ML, 1ML IVPush PRN (07:00)
[2019-02-28] MEDS ORDERED: ACETAMINOPHEN 325 MG TABLET PO PRN (07:00)
[2019-02-28] MEDS ORDERED: ONDANSETRON ODT 4 MG PO PRN (07:00)
[2019-02-28] MEDS ORDERED: PROMETHAZINE 25 MG/ML, 1ML IM PRN (07:00)
[2019-02-28 07:19] LABS: FREE T4 (FREE THYROXINE) 1.39 ng/dL (0.76-1.46); THYROID STIMULATING HORMONE 2.26 mIU/L (0.358-3.740)
[2019-02-28 07:39] VITALS: BP 136/79
[2019-02-28 07:47] LABS: HEMOGLOBIN A1C 7.8 % (4.2-6.3)
[2019-02-28] MEDS: LACTATED RINGERS 1,000 ML IV SCH ×2 (08:33→22:56)
[2019-02-28] MEDS: HEPARIN 5,000 UNITS/ML, 1ML SQ SCH ×2 (09:32→16:36)
[2019-02-28] MEDS: INSULIN LISPRO 100 UNITS/ML, PEN SQ-INSULIN SCH ×4 (09:36→21:00)
[2019-02-28 09:43] LABS: CHOL/HDL RATIO 2.8; LDL/HDL RATIO 1.2 (0.5-3.0)
[2019-02-28] MEDS ORDERED: POTASSIUM CHLORIDE 20 MEQ, MAGNESIUM SULFATE 1 GM, FOLIC ACID 1 MG, THIAMINE 200 MG, MV... IV SCH (11:00)
[2019-02-28] MEDS ORDERED: LACTATED RINGERS 1,000 ML IV SCH (11:00)
[2019-02-28] MEDS ORDERED: LORazepam 0.5MG TABLET PO PRN (11:00)
[2019-02-28] MEDS ORDERED: LORazepam 2 MG/ML, 1ML IV PRN ×5 (11:00)
[2019-02-28] MEDS ORDERED: LORazepam 1MG TABLET PO PRN ×4 (11:00)
[2019-02-28] MEDS ORDERED: MAGNESIUM SULFATE PMX 2GM/50ML 50 ML IV ONE (11:00)
[2019-02-28] MEDS ORDERED: CHLORDIAZEPOXIDE 25 MG CAPSULE PO SCH (11:30)
[2019-02-28] MEDS ORDERED: PROCHLORPERAZINE 5 MG/ML, 2ML IVPush ONE (11:30)
[2019-02-28 12:54] VITALS: BP 95/62
[2019-02-28] MEDS ORDERED: NALOXONE 0.4 MG/ML, 1ML IVPush PRN (17:30)
[2019-02-28 17:41] LABS: RAPID INFLUENZA A Negative (Negative); RAPID INFLUENZA B Negative (Negative)
[2019-02-28 17:46] LABS: AMPHETAMINE SCREEN, URINE Negative (Negative); BARBITURATE SCREEN, URINE Negative (Negative); BENZODIAZEPINE SCREEN, URINE Negative (Negative); CANNABINOID SCREEN, URINE Positive (Negative); COCAINE SCREEN, URINE Negative (Negative); METHADONE SCREEN, URINE Negative (Negative); OPIATE SCREEN, URINE Negative (Negative)
[2019-02-28 19:17] VITALS: BP 115/69
[2019-02-28 20:21] VITALS: BP 122/74
[2019-02-28] MEDS: LOVASTATIN 40 MG TABLET PO SCH (21:00)
[2019-03-01] MEDS: HEPARIN 5,000 UNITS/ML, 1ML SQ SCH ×3 (00:57→17:17)
[2019-03-01 02:13] VITALS: BP 126/63
[2019-03-01 05:24] LABS: ALANINE AMINOTRANSFERASE 28 U/L (12-78); ALBUMIN 3.2 g/dL (3.4-5.0); ANION GAP 3 mmol/L (5-15); CALCIUM 8.3 mg/dL (8.5-10.1); CHLORIDE 110 mmol/L (98-107)
[2019-03-01 05:27] LABS: ALKALINE PHOSPHATASE 33 U/L (45-117); BILIRUBIN,TOTAL 0.6 mg/dL (0.2-1.0); CHOL/HDL RATIO 2.2; CHOLESTEROL, TOTAL 98 mg/dL (140-239); CREATININE 1.14 mg/dL (0.7-1.3); HDL CHOL % 46 % (26-37); HDL CHOLESTEROL (DIRECT) 45 mg/dL (40-60); LDL CHOLESTEROL,CALCULATED 39 mg/dL (54-169); LDL/HDL RATIO 0.9 (0.5-3.0); TOTAL PROTEIN 5.6 g/dL (6.4-8.2); TRIGLYCERIDES 71 mg/dL (50-200); VLDL CHOLESTEROL 14 mg/dL (0-25)
[2019-03-01] MEDS: LACTATED RINGERS 1,000 ML IV SCH ×3 (05:46→17:19)
[2019-03-01 05:56] LABS: BASOPHILS # (AUTO) 0.02 x10^3/uL (0-0.1); BASOPHILS % (AUTO) 0 % (0-1); EOSINOPHILS # (AUTO) 0.08 x10^3/uL (0-0.4); EOSINOPHILS % (AUTO) 1 % (1-7); LYMPHOCYTES # (AUTO) 1.58 x10^3/uL (1-3.4); LYMPHOCYTES % (AUTO) 23 % (22-44); MD NO; MEAN CORPUSCULAR HEMOGLOBIN 32.1 pg (27.5-34.5); MEAN CORPUSCULAR HGB CONC 34.4 g/dL (33.2-36.2); MEAN CORPUSCULAR VOLUME 93.3 fL (81-97); MEAN PLATELET VOLUME 8.1 fL (7.4-10.4); MONOCYTES # (AUTO) 0.63 x10^3/uL (0.2-0.8); MONOCYTES % (AUTO) 9 % (2-9); NEUTROPHILS % (AUTO) 66 % (42-75); PLATELET COUNT 182 x10^3/uL (130-400); RED BLOOD COUNT 3.81 x10^6/uL (4.38-5.82); RED CELL DISTRIBUTION WIDTH 13.6 % (9.4-14.8)
[2019-03-01] MEDS: INSULIN LISPRO 100 UNITS/ML, PEN SQ-INSULIN SCH ×4 (07:00→20:56)
[2019-03-01] MEDS: TAMSULOSIN 0.4 MG CAP.ER.24H PO SCH (09:49)
[2019-03-01 10:00] VITALS: BP 134/66
[2019-03-01] MEDS ORDERED: POTASSIUM CHLORIDE 20 MEQ, MAGNESIUM SULFATE 1 GM, FOLIC ACID 1 MG, THIAMINE 200 MG, MV... IV SCH (11:00)
[2019-03-01 13:33] VITALS: BP 140/87
[2019-03-01 18:48] VITALS: BP 113/70
[2019-03-01] MEDS: OXYcodone IR 5MG TABLET PO PRN (20:54)
[2019-03-01] MEDS: LOVASTATIN 40 MG TABLET PO SCH (20:54)
[2019-03-02 00:53] VITALS: BP 123/74
[2019-03-02] MEDS: HEPARIN 5,000 UNITS/ML, 1ML SQ SCH ×2 (01:11→08:08)
[2019-03-02] MEDS: LACTATED RINGERS 1,000 ML IV SCH ×2 (01:36→08:08)
[2019-03-02 05:17] LABS: BASOPHILS # (AUTO) 0.02 x10^3/uL (0-0.1); BASOPHILS % (AUTO) 0 % (0-1); EOSINOPHILS # (AUTO) 0.15 x10^3/uL (0-0.4); EOSINOPHILS % (AUTO) 2 % (1-7); LYMPHOCYTES # (AUTO) 2.03 x10^3/uL (1-3.4); LYMPHOCYTES % (AUTO) 31 % (22-44); MD NO; MEAN CORPUSCULAR HEMOGLOBIN 31.9 pg (27.5-34.5); MEAN CORPUSCULAR HGB CONC 34.5 g/dL (33.2-36.2); MEAN CORPUSCULAR VOLUME 92.6 fL (81-97); MEAN PLATELET VOLUME 8.1 fL (7.4-10.4); MONOCYTES # (AUTO) 0.45 x10^3/uL (0.2-0.8); MONOCYTES % (AUTO) 7 % (2-9); NEUTROPHILS # (AUTO) 3.91 x10^3/uL (1.8-6.8); NEUTROPHILS % (AUTO) 60 % (42-75); PLATELET COUNT 150 x10^3/uL (130-400); RED BLOOD COUNT 3.28 x10^6/uL (4.38-5.82); RED CELL DISTRIBUTION WIDTH 13.6 % (9.4-14.8)
[2019-03-02 05:27] LABS: CHLORIDE 109 mmol/L (98-107)
[2019-03-02 05:28] LABS: ALBUMIN 2.9 g/dL (3.4-5.0); ANION GAP 5 mmol/L (5-15)
[2019-03-02 05:33] LABS: ALANINE AMINOTRANSFERASE 26 U/L (12-78); ALKALINE PHOSPHATASE 31 U/L (45-117); BILIRUBIN,TOTAL 0.7 mg/dL (0.2-1.0); CREATININE 1.03 mg/dL (0.7-1.3)
[2019-03-02] MEDS: INSULIN LISPRO 100 UNITS/ML, PEN SQ-INSULIN SCH ×2 (07:00→11:34)
[2019-03-02] MEDS ORDERED: MAGNESIUM SULFATE 3 GM in SODIUM CHLORIDE 0.9% 100 ML IV ONE (07:30)
[2019-03-02] MEDS ORDERED: POTASSIUM CHLORIDE 10% 40 MEQ/30 ML UDC PO ONE (07:30)
[2019-03-02] MEDS: TAMSULOSIN 0.4 MG CAP.ER.24H PO SCH (08:08)
[2019-03-02] MEDS: OXYcodone IR 5MG TABLET PO PRN (08:08)
[2019-03-02 09:17] VITALS: BP 125/73
[2019-03-02] MEDS ORDERED: TAMS-11 PO (13:31)
== END 2019-03-02 14:24 | disposition home or self-care (01) | DRG 438 ==
LOC: ED 02:00 → EDIP 05:29 → 4NOR 06:40 → 5SO 11:32 → 4EST 18:36 → DCLOUNGE 03-02 14:17
PROVIDERS: ADMIT Internal Medicine; ATTEND Internal Medicine
DX: K85.90 Acute pancreatitis without necrosis or infection, unspecified (principal); N17.0 Acute kidney failure with tubular necrosis; N13.2 Hydronephrosis with renal and ureteral calculous obstruction; F10.239 Alcohol dependence with withdrawal, unspecified; E86.0 Dehydration; F31.9 Bipolar disorder, unspecified; N21.0 Calculus in bladder; I10 Essential (primary) hypertension; F12.10 Cannabis abuse, uncomplicated; E11.9 Type 2 diabetes mellitus without complications; Z87.19 Personal history of other diseases of the digestive system; Z87.442 Personal history of urinary calculi; Z80.42 Family history of malignant neoplasm of prostate; Z79.84 Long term (current) use of oral hypoglycemic drugs; Z88.6 Allergy status to analgesic agent; Z79.899 Other long term (current) drug therapy; Z88.1 Allergy status to other antibiotic agents; Z88.8 Allergy status to other drugs, medicaments and biological substances
CPT/HCPCS: 36415; 70450; 74177; 76700; 80053; 80061; 80307; 81001; 82010; 82150; 82962; 83036; 83690; 83735; 84100; 84439; 84443; 85025; 87040; 87400; 93005; 96361; 96374; G0378; J1644; J2405; J2550; J3411; J3475; J3480; Q9967; J0780; J1815; J2060; J2765; J7030; J7120; J7121

== ENCOUNTER 2019-05-08 17:19 | Inpatient (IN) | payer MEDICARE ==
[~2019-05-08] VITALS: Ht 170.2 cm; Wt 62.4 kg
[~2019-05-08 17:19] MED LIST changes: +LOVA40TA2 PO
--- NOTE | 2019-05-08 17:34 | NUR ---
EMS STATES UP0N ARRIVAL PT AMBULATORY BUT PALE AND DIAPHORETIC. MEDIC NOTED COFFEE GROUND EMESIS AND BLACK TARRY STOOL IN BATHROOM. PT HAD BEEN TACHYCARDIC AT 120. RECEIVED IV BOLUS IN FIELD AND HEART RATE NOW 95.
[2019-05-08] MEDS ORDERED: FAMOTIDINE 20 MG/2 ML IVP ONE (18:00)
[2019-05-08] MEDS ORDERED: SODIUM CHLORIDE FLUSH 10ML SYR IVF ONE (18:00)
[2019-05-08] MEDS ORDERED: ONDANSETRON 2MG/ML, 2ML IVPush ONE (18:00)
[2019-05-08] MEDS ORDERED: ONDANSETRON 2MG/ML, 2ML ONE (18:18)
[2019-05-08] MEDS ORDERED: FAMOTIDINE 20 MG/2 ML ONE (18:19)
--- NOTE | 2019-05-08 18:28 | NUR ---
UPON RETURN FROM XRAY, PT MEDICATED FOR NAUSEA AND DRY HEAVING. LAB DRAWING BLOOD
[2019-05-08 18:38] LABS: BASOPHILS % (AUTO) 0 % (0-1); EOSINOPHILS % (AUTO) 0 % (1-7); LYMPHOCYTES % (AUTO) 9 % (22-44); MD NO; MEAN CORPUSCULAR HEMOGLOBIN 32.1 pg (27.5-34.5); MEAN CORPUSCULAR HGB CONC 33.2 g/dL (33.2-36.2); MEAN CORPUSCULAR VOLUME 96.5 fL (81-97); MEAN PLATELET VOLUME 8.1 fL (7.4-10.4); MONOCYTES # (AUTO) 0.12 x10^3/uL (0.2-0.8); MONOCYTES % (AUTO) 2 % (2-9); NEUTROPHILS # (AUTO) 7.28 x10^3/uL (1.8-6.8); NEUTROPHILS % (AUTO) 90 % (42-75); PLATELET COUNT 149 x10^3/uL (130-400); RED BLOOD COUNT 4.47 x10^6/uL (4.38-5.82); RED CELL DISTRIBUTION WIDTH 13.4 % (9.4-14.8)
[2019-05-08 18:49] LABS: INTERNATIONAL NORMALIZED RATIO 1.04 (0.93-1.1); PROTHROMBIN TIME 10.9 Seconds (9.6-11.5)
[2019-05-08 18:50] LABS: ALBUMIN 4.3 g/dL (3.4-5.0); ANION GAP 10 mmol/L (5-15); CALCIUM 9.8 mg/dL (8.5-10.1); CHLORIDE 112 mmol/L (98-107)
[2019-05-08 18:53] LABS: ALANINE AMINOTRANSFERASE 53 U/L (12-78); ALKALINE PHOSPHATASE 41 U/L (45-117); BILIRUBIN,TOTAL 0.6 mg/dL (0.2-1.0); CREATININE 1.65 mg/dL (0.7-1.3); TOTAL PROTEIN 7.5 g/dL (6.4-8.2)
--- NOTE | 2019-05-08 19:04 | NUR ---
RECEIVED BS REPORT FROM NEO MONK TO ASSUME CARE OF PT. DR. CHAPPELL WAS IN TO DISCUSS ED FINDINGS WITH PT.
[2019-05-08] MEDS ORDERED: METOCLOPRAMIDE 5 MG/ML, 2ML ONE (19:06)
--- NOTE | 2019-05-08 19:15 | NUR ---
PT. MEDICATED PER MAR FOR CONTINUED DRY-HEAVING. NO EMESIS NOTED AT THIS TIME. ALL SAFETY MEASURS OBSERVED. ALL MONITORS ARE IN PLACE. CALL LIGHT IN REACH.
[2019-05-08] MEDS ORDERED: METOCLOPRAMIDE 5 MG/ML, 2ML IVPush ONE (19:30)
--- NOTE | 2019-05-08 19:58 | NUR ---
PT. RESTING ON GURNEY WITH NADN. EYES, CLOSED. LEFT SIDE LYING. ALL MONIOTRS REMAIN IN PLACE. CALL LIGHT IN REACH. SAFETY MEASURES MAINTAINED.
[2019-05-08] MEDS ORDERED: BISACODYL 10 MG SUPP PR PRN (20:30)
[2019-05-08] MEDS ORDERED: ACETAMINOPHEN 325 MG TABLET PO PRN (20:30)
[2019-05-08] MEDS ORDERED: LIDODERM 5% PATCH TD PRN (20:30)
[2019-05-08] MEDS ORDERED: PROMETHAZINE 25 MG/ML, 1ML IM PRN (20:30)
[2019-05-08] MEDS ORDERED: hydrALAzine 20 MG/ML, 1ML IVPush PRN (20:30)
--- NOTE | 2019-05-08 20:41 | NUR ---
FIRST ATTEMPT TO CALL REPORT TO FLOOR.
--- NOTE | 2019-05-08 20:46 | NUR ---
REPORT TO NEO SINGER. FLOOR READY FOR PT. TRANSPORT.
[2019-05-08] MEDS: LACTATED RINGERS 1,000 ML IV SCH (21:09)
[2019-05-08] MEDS: PANTOPRAZOLE 40 MG IV IVPush SCH (21:20)
[2019-05-09 00:16] VITALS: BP 110/71
[2019-05-09 00:32] VITALS: BP 106/64
[2019-05-09] MEDS: LACTATED RINGERS 1,000 ML IV SCH ×3 (04:03→19:50)
[2019-05-09 05:30] LABS: BASOPHILS # (AUTO) 0.02 x10^3/uL (0-0.1); BASOPHILS % (AUTO) 0 % (0-1); EOSINOPHILS % (AUTO) 0 % (1-7); LYMPHOCYTES # (AUTO) 1.29 x10^3/uL (1-3.4); LYMPHOCYTES % (AUTO) 17 % (22-44); MD NO; MEAN CORPUSCULAR HEMOGLOBIN 31.6 pg (27.5-34.5); MEAN CORPUSCULAR VOLUME 95.8 fL (81-97); MEAN PLATELET VOLUME 7.8 fL (7.4-10.4); MONOCYTES % (AUTO) 9 % (2-9); NEUTROPHILS # (AUTO) 5.76 x10^3/uL (1.8-6.8); NEUTROPHILS % (AUTO) 74 % (42-75); PLATELET COUNT 123 x10^3/uL (130-400); RED BLOOD COUNT 3.95 x10^6/uL (4.38-5.82); RED CELL DISTRIBUTION WIDTH 14.2 % (9.4-14.8)
[2019-05-09 05:41] LABS: CHLORIDE 114 mmol/L (98-107)
[2019-05-09 05:46] LABS: ANION GAP 7 mmol/L (5-15); CREATININE 1.28 mg/dL (0.7-1.3)
[2019-05-09 06:53] VITALS: BP 128/75
[2019-05-09] MEDS: INSULIN LISPRO 100 UNITS/ML, PEN SQ-INSULIN SCH ×6 (07:21→20:01)
[2019-05-09] MEDS: PANTOPRAZOLE 40 MG IV IVPush SCH (07:41)
[2019-05-09 08:53] LABS: HEMOGLOBIN A1C 6.4 % (4.2-6.3)
[2019-05-09] MEDS ORDERED: OXYcodone IR 5MG TABLET PO PRN (09:30)
[2019-05-09 10:16] LABS: MICROSCOPIC NOT IND
[2019-05-09 10:18] LABS: CULTURE INDICATED? NO
[2019-05-09] MEDS: ENOXAPARIN 40 MG/0.4 ML SQ SCH (11:33)
[2019-05-09 12:17] VITALS: BP 138/77
[2019-05-09] MEDS ORDERED: GLUCAGON 1 MG IM PRN (15:30)
[2019-05-09] MEDS ORDERED: DEXTROSE 50%, 50ML SYRINGE IVPush PRN (15:30)
[2019-05-09] MEDS ORDERED: DEXTROSE 4 GM TAB.CHEW PO PRN (15:30)
[2019-05-09 19:47] VITALS: BP 134/86
[2019-05-09] MEDS: SODIUM CHLORIDE FLUSH 10ML SYR IVF SCH (19:51)
[2019-05-10 01:14] VITALS: BP 129/83
[2019-05-10] MEDS: LACTATED RINGERS 1,000 ML IV SCH (02:13)
[2019-05-10 05:39] LABS: BASOPHILS # (AUTO) 0.02 x10^3/uL (0-0.1); BASOPHILS % (AUTO) 0 % (0-1); EOSINOPHILS # (AUTO) 0.03 x10^3/uL (0-0.4); EOSINOPHILS % (AUTO) 0 % (1-7); LYMPHOCYTES # (AUTO) 2.23 x10^3/uL (1-3.4); LYMPHOCYTES % (AUTO) 31 % (22-44); MD NO; MEAN CORPUSCULAR HEMOGLOBIN 32.5 pg (27.5-34.5); MEAN CORPUSCULAR HGB CONC 33.4 g/dL (33.2-36.2); MEAN CORPUSCULAR VOLUME 97.3 fL (81-97); MEAN PLATELET VOLUME 8.5 fL (7.4-10.4); MONOCYTES # (AUTO) 0.56 x10^3/uL (0.2-0.8); MONOCYTES % (AUTO) 8 % (2-9); NEUTROPHILS # (AUTO) 4.27 x10^3/uL (1.8-6.8); NEUTROPHILS % (AUTO) 60 % (42-75); PLATELET COUNT 107 x10^3/uL (130-400); RED BLOOD COUNT 3.74 x10^6/uL (4.38-5.82); RED CELL DISTRIBUTION WIDTH 13.9 % (9.4-14.8)
[2019-05-10 05:41] LABS: CHLORIDE 108 mmol/L (98-107)
[2019-05-10 05:47] LABS: ALANINE AMINOTRANSFERASE 33 U/L (12-78); ALBUMIN 3.3 g/dL (3.4-5.0); ALKALINE PHOSPHATASE 26 U/L (45-117); ANION GAP 7 mmol/L (5-15); BILIRUBIN,TOTAL 0.6 mg/dL (0.2-1.0); CALCIUM 8.5 mg/dL (8.5-10.1); CHOL/HDL RATIO 1.8; CHOLESTEROL, TOTAL 109 mg/dL (140-239); CREATININE 1.03 mg/dL (0.7-1.3); HDL CHOL % 54 % (26-37); HDL CHOLESTEROL (DIRECT) 59 mg/dL (40-60); LDL CHOLESTEROL,CALCULATED 37 mg/dL (54-169); LDL/HDL RATIO 0.6 (0.5-3.0); TOTAL PROTEIN 5.8 g/dL (6.4-8.2); TRIGLYCERIDES 64 mg/dL (50-200); VLDL CHOLESTEROL 13 mg/dL (0-25)
[2019-05-10 06:59] VITALS: BP 142/76
[2019-05-10] MEDS: INSULIN LISPRO 100 UNITS/ML, PEN SQ-INSULIN SCH ×4 (07:00→21:00)
[2019-05-10] MEDS: PANTOPROZOLE 40MG TABLET PO SCH (08:01)
[2019-05-10] MEDS: SODIUM CHLORIDE FLUSH 10ML SYR IVF SCH ×2 (09:00→20:50)
[2019-05-10] MEDS: ENOXAPARIN 40 MG/0.4 ML SQ SCH (10:33)
[2019-05-10 13:28] VITALS: BP 101/63
[2019-05-10 19:33] VITALS: BP 129/76
[2019-05-11 01:50] VITALS: BP 124/72
[2019-05-11] MEDS: PANTOPROZOLE 40MG TABLET PO SCH (05:38)
[2019-05-11 06:56] VITALS: BP 134/84
[2019-05-11] MEDS: INSULIN LISPRO 100 UNITS/ML, PEN SQ-INSULIN SCH ×2 (07:00→11:00)
[2019-05-11] MEDS: SODIUM CHLORIDE FLUSH 10ML SYR IVF SCH (07:57)
[2019-05-11] MEDS ORDERED: ONDA4TAB7 PO (10:07)
[2019-05-11] MEDS ORDERED: PANT40TA5 PO (10:07)
[2019-05-11] MEDS: ENOXAPARIN 40 MG/0.4 ML SQ SCH (11:30)
== END 2019-05-11 11:39 | disposition home or self-care (01) | DRG 438 ==
LOC: ED 20:06 → EDIP 20:13 → 3NE 21:05 → DCLOUNGE 05-11 11:28
PROVIDERS: ADMIT Internal Medicine; ATTEND Internal Medicine
DX: K85.00 Idiopathic acute pancreatitis without necrosis or infection (principal); N17.0 Acute kidney failure with tubular necrosis; E87.0 Hyperosmolality and hypernatremia; K86.1 Other chronic pancreatitis; E86.0 Dehydration; F12.90 Cannabis use, unspecified, uncomplicated; F31.9 Bipolar disorder, unspecified; E11.40 Type 2 diabetes mellitus with diabetic neuropathy, unspecified; I10 Essential (primary) hypertension; Z80.42 Family history of malignant neoplasm of prostate; Z87.19 Personal history of other diseases of the digestive system; Z87.442 Personal history of urinary calculi
CPT/HCPCS: 36415; 74021; 76700; 80048; 80053; 80061; 80307; 81003; 82962; 83036; 83690; 84443; 85025; 85610; 85730; 86850; 86900; 96374; 96375; G0378; J1650; J2405; C9113; J1815; J2765; J3490; J7120